=== PATIENT | male | born 1955 | race Caucasian/White ===

== ENCOUNTER 2020-07-25 14:36 | Outpatient (REF) | payer MEDICARE, SELFPAY ==
[2020-07-25 15:38] LABS: MANUAL DIFF FLAG NO
[2020-07-25 15:46] LABS: Basophils Absolute Auto 0.1 X10*3/uL (0.0-0.2); Basophils Percent Auto 0.6 % (0-2); Eosinophils Absolute Auto 0.3 X10*3/uL (0.0-0.4); Hematocrit 43.8 % (42-52); Hemoglobin 14.3 g/dl (14.0-18.0); Imm Gran Abs Auto 0.02 X10*3/uL (0.00-0.03); Imm Gran Pct Auto 0.2 % (0.0-0.4); Lymphocytes Absolute Auto 3.9 X10*3/uL (1.2-4.9); Lymphocytes Percent Auto 43.4 % (20-40); Mean Corpuscular HGB Conc 32.6 g/dl (31.0-36.0); Mean Corpuscular Hemoglobin 29.6 pg (27.0-33.0); Mean Corpuscular Volume 90.7 fL (80-98); Mean Platelet Volume 10.6 fL (9.4-12.4); Monocytes Absolute Auto 0.7 X10*3/uL (0.1-1.2); Monocytes Percent Auto 7.6 % (2-11); Neutrophils Absolute Auto 4.1 X10*3/uL (2.0-8.3); Neutrophils Percent Auto 45.2 % (45-73); Platelet Count 232 X10*3/uL (160-400); Red Blood Count 4.83 X10*6/uL (4.60-5.80); Red Cell Distribution Width 12.2 % (11.0-16.0)
[2020-07-25 16:13] LABS: Anion Gap 11 (12-20); Blood Urea Nitrogen 14 mg/dL (9-16); Calcium 9.7 mg/dL (8.4-10.2); Carbon Dioxide 30 mmol/L (22-29); Chloride 104 mmol/L (96-108); Estimated Glomerular Filt Rate > 60; Glucose Random 110 mg/dL (60-115); Potassium 4.2 mmol/L (3.3-5.1); Sodium 141 mmol/L (135-145)
[2020-07-25 16:34] LABS: Thyroid Stimulating Hormone 0.55 uIU/mL (0.32-4.0)
== END 2020-07-25 14:37 | disposition home or self-care (01) ==
LOC: HO.LAB 14:36
PROVIDERS: PCP Internal Medicine; Visit Provider Internal Medicine
DX: Z00.00 Encounter for general adult medical examination without abnormal findings (principal); R51.9 Headache, unspecified; E03.9 Hypothyroidism, unspecified
CPT/HCPCS: 36415; 80048; 84443; 85025

== ENCOUNTER 2022-09-02 14:26 | Outpatient (AMB) | payer MEDICARE, SELFPAY ==
[2022-09-02 14:29] VITALS: BP 118/80; PULSE 104; O2SAT 97; BMI 20.4
--- NOTE | 2022-09-02 14:29 | A.OFFPC_ITS ---
Vital Signs 09/02/22 14:29 Height 5 ft 9.5 in Weight 140 lb 8 oz BMI 20.4 BP 118/80 Blood Pressure Location Lt brachial Position Sitting Pulse 104 H Pulse Source Pulse Oximeter Pulse Oximetry (%) 97 Oxygen Delivery Method Room Air Intake Visit Reasons: Follow Up Financial Underwriter Required: No Accompanied by: Self / Same As Patient Allergies No Known Allergies Allergy (Verified 09/02/22 14:30) Medication List - Last Reconciled 09/02/22 by Cm Saunders MD clonazepam 2 mg PO BEDTIME hydromorphone 4 mg PO ONCE levothyroxine 150 mcg PO DAILY lisinopril-hydrochlorothiazide 10-12.5 mg 1 tab PO DAILY mirtazapine 15 mg PO BEDTIME morphine ER 15 mg PO DAILY morphine ER 30 mg PO BID nortriptyline 50 mg PO BEDTIME omeprazole 20 mg PO DAILY pravastatin 20 mg PO BEDTIME tamsulosin 0.8 mg (2 x 0.4 mg) PO DAILY Tobacco use date assessed: 09/02/22 Fall risk assessment: No Falls in past year Last assessed Fall Risk: 09/02/22 Dental Screening Dental Screen Date: 09/02/22 Did you have a dental visit in the last 12 months?: Yes Did you have a dental problem in the last 6 months where you did not have access to dental care?: No Was dental information given to patient?: Patient has dentist HPI Follow Up HPI Details HTN and hyperlip on rx; goesto pain management for back pain [facility] Medical History (Updated 06/17/22 @ 13:16 by Cm Saunders MD) Hypertension Surgical History H/O left wrist surgery History of laminectomy Family History Father Cerebral aneurysm Mother No problems noted. Brother Alcoholism Other Substance use disorder Social History Housing: House Alcohol intake: never Patient Tobacco Use Status: Current everyday Tobacco user Tobacco use type: Pipe Cigarettes Per Day: 2 e-Cigarette/Vaping Use: Never Used Second Hand Smoke Exposure: No service: No Current occupational status: retired Cognitive needs: No Hearing needs: No Vision needs: No Questionnaire PHQ-9 Over the last 2 weeks, how often have you been bothered by any of the following problems? Depression Screening Interpretation: Negative Source: Developed by Drs. Bradley Pickens, Adrian Worthington and colleagues, with an educational vinod from [employer] (acquired by [employer]). Thrive Questionnaire Date Thrive assessed: 09/02/22 I am a: Patient What is your living situation today?: I have a steady place to live Within the past 12 months, did the food you bought not last and you didn't have the money to get more?: Never true Within the past 12 months, did you worry whether your food would run out before you got money to buy more?: Never true Do you have trouble paying for medicines?: No Do you have trouble getting transportation to medical appointments?: No Do you have trouble paying your heating and electricity bill?: No Do you have trouble taking care of your child, family member or friend?: No Do you have trouble with day-to-day activities such as bathing, preparing meals, shopping, managing finances, etc.?: No Are you currently unemployed and looking for a job?: No Are you interested in more education?: No Currently or been in a relationship where the following occur: no concerns reported AUDIT C Alcohol Use Questionnaire (AUDIT-C) 1. How often do you have a drink containing alcohol?: Never 3. How often do you have six or more drinks on one occasion?: Never Total Score: 0 Score Reviewed/Action Taken: Yes JOSHUA-7 AMB Questionnaire JOSHUA-7 Date JOSHUA - 7 assessed: 09/02/22 Feeling nervous, anxious, or on edge: 0 = Not at all Not being able to stop or control worryin = Not at all Worrying too much about different things: 0 = Not at all Trouble relaxin = Not at all Being so restless that it is hard to sit still: 0 = Not at all Becoming easily annoyed or irritable: 0 = Not at all Feeling afraid as if something awful might happen: 0 = Not at all Total JOSHUA-7 score (0-4 normal; 5-9 mild; 10-14 moderate; 15-21 severe): 0 Source: Developed by Ilana Tanner Kurt Kroenke and colleagues, with an educational vinod from [employer] (acquired by [employer]). JOSHUA-7 Assessment Billing JOSHUA-7 Assessment Tool: JOSHUA-7 Assessment 65636 Review of Systems Const Denies chills, Denies headache(s) and Denies weight loss ENT Denies headache(s) Card Denies chest pain, Denies syncope, Denies irregular heart rhythm and Denies dyspnea Resp Denies chest congestion, Denies cough and Denies dyspnea GI Denies abdominal pain, Denies change in stool character, Denies nausea and Denies vomiting Musc Denies deformity and Denies joint swelling Neuro Denies syncope and Denies headache(s) Physical exam (Primary Care) Vital Signs: Last Vital Signs Pulse 104 H 09/02/22 14:29 BP 118/80 09/02/22 14:29 Pulse Ox 97 09/02/22 14:29 Oxygen Delivery Method Room Air 09/02/22 14:29 BMI result Body Mass Index 20.4 Tobacco/Smoking Status: Tobacco use Status Tobacco use date assessed 09/02/22 09/02/22 14:35 Patient Tobacco Use Status Current everyday Tobacco 09/02/22 14:35 Tobacco use type Pipe 09/02/22 14:35 e-Cigarette/Vaping Use Never Used 09/02/22 14:35 Are you ready to quit: No Tobacco cessation counseling provided: Yes Number of minutes spent counselin CPT code: 39070 - 4-10 Minutes Depression Screening Interpretation: Negative Thrive Assessment: Date of Thrive Assessment Date Thrive assessed 09/02/22 09/02/22 14:35 Currently or been in a relationship where the following occur: no concerns reported Const General: comfortable, no acute distress and alert Neck Neck: Yes no lymphadenopathy Thyroid: Thyroid normal Resp Effort & Inspection: normal respiratory effort Auscultation: clear to auscultation bilaterally Percussion: percussion normal Cardio Jugular venous distension: no JVD Palpation: normal PMI Rate: regular rate Rhythm: regular rhythm Heart sounds: S1 normal heart sound present and S2 normal heart sound present GI Inspection: Yes normal to inspection Palpation (GI): No hepatosplenomegaly present Skin General skin exam: no rashes or lesions noted Extrem Other: dupytrens cont right hand General: Yes no clubbing, cyanosis or edema Assessment and Plan Assessment & Plan (1) Hypothyroidism: Code(s): E03.9 - Hypothyroidism, unspecified Plan: stable; same rx (2) Hypertension: Code(s): I10 - Essential (primary) hypertension Plan: stable; same rx Orders: Orders Comprehensive [place]. Panel Fast Today N28.9 - Disorder of kidney and ureter, unspecified Lipid Panel Today E78.5 - Hyperlipidemia, unspecified Thyroid Stimulating Hormone Today E03.9 - Hypothyroidism, unspecified Coding Level of Care Code Est Pt Level 4 (20128) Diagnoses Hypothyroidism E03.9 Hypertension I10 Additional Codes JOSHUA-7 Assessment Billing - JOSHUA-7 Assessment Tool: JOSHUA-7 Assessment 46608 ([id number]) Vital Signs *Quality* - CPT code: 02879 - 4-10 Minutes ([id number])
== END 2022-09-02 14:42 | disposition home or self-care (01) ==
PROVIDERS: PCP Internal Medicine; Visit Provider Internal Medicine
DX: E03.9 Hypothyroidism, unspecified (principal); I10 Essential (primary) hypertension
CPT/HCPCS: 99214

== ENCOUNTER 2023-03-30 11:23 | Outpatient (AMB) | payer MEDICARE, SELFPAY ==
[2023-03-30 11:25] VITALS: BP 132/70; PULSE 87; O2SAT 98; BMI 20.2
--- NOTE | 2023-03-30 11:25 | A.OFFPC_ITS ---
Vital Signs 03/30/23 11:25 Height 5 ft 9.5 in Weight 139 lb BMI 20.2 BP 132/70 Blood Pressure Location Lt brachial Position Sitting Pulse 87 Pulse Source Pulse Oximeter Pulse Oximetry (%) 98 Oxygen Delivery Method Room Air Intake Visit Reasons: 6mth f/u ( Medications ) Reception Manager Required: No Can Piler: Not Required per policy Accompanied by: Self / Same As Patient Allergies No Known Allergies Allergy (Verified 03/30/23 11:25) Medication List - Last Reconciled 03/31/23 by Cm Saunders MD clonazepam 2 mg PO BEDTIME hydromorphone 4 mg PO ONCE levothyroxine 150 mcg PO DAILY lisinopril-hydrochlorothiazide 10-12.5 mg 1 tab PO DAILY mirtazapine 15 mg PO BEDTIME morphine ER 15 mg PO DAILY morphine ER 30 mg PO BID nortriptyline 50 mg PO BEDTIME omeprazole 20 mg PO DAILY pravastatin 20 mg PO BEDTIME tamsulosin 0.8 mg (2 x 0.4 mg) PO DAILY Tobacco use date assessed: 03/30/23 Fall risk assessment: No Falls in past year Last assessed Fall Risk: 03/30/23 Dental Screening Dental Screen Date: 03/30/23 Did you have a dental visit in the last 12 months?: Yes Did you have a dental problem in the last 6 months where you did not have access to dental care?: No Was dental information given to patient?: Patient has dentist HPI 6mth f/u ( Medications ) HPI Details HTN on Rx; doing well; Chronic pain and anxiety and goes to pain management for his meds [facility] Medical History (Updated 06/17/22 @ 13:16 by Cm Saunders MD) Hypertension Surgical History H/O left wrist surgery History of laminectomy Family History Father Cerebral aneurysm Mother No problems noted. Brother Alcoholism Other Substance use disorder Social History Housing: House Alcohol intake: never Patient Tobacco Use Status: Current everyday Tobacco user Tobacco use type: Pipe Cigarettes Per Day: 2 e-Cigarette/Vaping Use: Never Used Second Hand Smoke Exposure: No service: No Current occupational status: retired Cognitive needs: No Hearing needs: No Vision needs: No Questionnaire PHQ-9 Over the last 2 weeks, how often have you been bothered by any of the following problems? 1. Little interest or pleasure in doing things: several days 2. Feeling down, depressed, or hopeless: more than half the days 3. Trouble falling or staying asleep, or sleeping too much: not at all 4. Feeling tired or having little energy: not at all 5. Poor appetite or overeating: not at all 6. Feeling bad about yourself - or that you are a failure or have let yourself or your family down: not at all 7. Trouble concentrating on things, such as reading the newspaper or watching television: not at all 8. Moving or speaking so slowly that other people could have noticed. Or the opposite - being so fidgety or restless that you have been moving around a lot more than usual: not at all 9. Thoughts that you would be better off or of hurting yourself in some way: not at all Total score: 3 Depression Screening Interpretation: Negative Depression Screening Done: Yes Source: Developed by Drs. Bradley Pickens, Ilana Fitzgerald, Adrian Kim and colleagues, with an educational vinod from [employer]. Thrive Questionnaire Date Thrive assessed: 03/30/23 I am a: Patient What is your living situation today?: I have a steady place to live Within the past 12 months, did the food you bought not last and you didn't have the money to get more?: Never true Within the past 12 months, did you worry whether your food would run out before you got money to buy more?: Never true Do you have trouble paying for medicines?: No Do you have trouble getting transportation to medical appointments?: No Do you have trouble paying your heating and electricity bill?: No Do you have trouble taking care of your child, family member or friend?: No Do you have trouble with day-to-day activities such as bathing, preparing meals, shopping, managing finances, etc.?: No Are you currently unemployed and looking for a job?: No Are you interested in more education?: No Please select the resources that you would like help with: None THRIVE Score: 0 AUDIT C Alcohol Use Questionnaire (AUDIT-C) 1. How often do you have a drink containing alcohol?: Never 3. How often do you have six or more drinks on one occasion?: Never Total Score: 0 Score Reviewed/Action Taken: Yes JOSHUA-7 AMB Questionnaire JOSHUA-7 Date JOSHUA - 7 assessed: 03/30/23 Feeling nervous, anxious, or on edge: 0 = Not at all Not being able to stop or control worryin = Not at all Worrying too much about different things: 0 = Not at all Trouble relaxin = Not at all Being so restless that it is hard to sit still: 0 = Not at all Becoming easily annoyed or irritable: 0 = Not at all Feeling afraid as if something awful might happen: 0 = Not at all Total JOSHUA-7 score (0-4 normal; 5-9 mild; 10-14 moderate; 15-21 severe): 0 Source: Developed by Drs. Bradley Pickens, Ilana Fitzgerald, Adrian Kim and colleagues, with an educational vinod from [employer]. Review of Systems Const Denies chills, Denies headache(s) and Denies weight loss ENT Denies headache(s) Card Denies chest pain, Denies syncope, Denies irregular heart rhythm and Denies dyspnea Resp Denies chest congestion, Denies cough and Denies dyspnea GI Denies abdominal pain, Denies change in stool character, Denies nausea and Denies vomiting Musc Denies deformity and Denies joint swelling Neuro Denies syncope and Denies headache(s) Physical exam (Primary Care) Vital Signs: Last Vital Signs Pulse 87 03/30/23 11:25 BP 132/70 03/30/23 11:25 Pulse Ox 98 03/30/23 11:25 Oxygen Delivery Method Room Air 03/30/23 11:25 BMI result Body Mass Index 20.2 Tobacco/Smoking Status: Tobacco use Status Tobacco use date assessed 03/30/23 03/30/23 11:26 Patient Tobacco Use Status Current everyday Tobacco 03/30/23 11:26 Tobacco use type Pipe 03/30/23 11:26 e-Cigarette/Vaping Use Never Used 03/30/23 11:26 PHQ-9: PHQ-9 Score PHQ-9: Total score 3 03/30/23 11:45 Depression Screening Interpretation: Negative Thrive Assessment: Date of Thrive Assessment Date Thrive assessed 03/30/23 03/30/23 11:26 Const General: cooperative, comfortable, no acute distress and alert Neck Neck: Yes no lymphadenopathy Thyroid: Thyroid normal Resp Effort & Inspection: normal respiratory effort Auscultation: clear to auscultation bilaterally Percussion: percussion normal Cardio Jugular venous distension: no JVD Palpation: normal PMI Rate: regular rate Rhythm: regular rhythm Heart sounds: S1 normal heart sound present and S2 normal heart sound present GI Inspection: Yes normal to inspection Palpation (GI): No hepatosplenomegaly present Skin General skin exam: no rashes or lesions noted Extrem General: Yes no clubbing, cyanosis or edema Office Procedures Flu Questionnaire Does the patient have a severe egg allergy?: No Does the patient have severe life threatening allergies?: No Does the patient have a fever or illness today?: No Has the patient ever had Guillain-Alexis Syndrome?: No Has the patient ever had any past reaction to a flu shot?: No Immunizations flu vacc [id number] 6mos up(PF) 60 mcg(15 mcgx4)/0.5 mL IM syringe Performing Provider: Cm Saunders MD Performing Location: [facility] Administered by: ANRDEY Jessica on 03/30/23 11:46 Dose Route Admin Location Dispensed Lot Number Expiration Date NDC Buffing Machine Operator 0.5 mL IM Left Deltoid 0.5 mL [id number] 08/22/23 [id number] [employer] VIS Given Date VIS Provided VIS Publication Date 03/30/23 Single Vaccine 20 Eligibility Eligibility Date Funding Source Not [facility] Eligible 03/30/23 Private Assessment and Plan Assessment & Plan (1) Hypertension: Code(s): I10 - Essential (primary) hypertension Plan: stable; same rx Orders: Orders Influenza [id number] Immunization 03/30/23 Z23 - Encounter for immunization Thyroid Stimulating Hormone 03/30/23 E03.9 - Hypothyroidism, unspecified Complete Blood Count Auto Diff 03/30/23 D64.9 - Anemia, unspecified Lipid Panel 03/30/23 E78.5 - Hyperlipidemia, unspecified Comprehensive [place]. Panel Fast 03/30/23 N28.9 - Disorder of kidney and ureter, unspecified Coding Level of Care Code Est Pt Level 3 (05565) Diagnoses Hypertension I10
== END 2023-03-30 11:47 | disposition home or self-care (01) ==
PROVIDERS: PCP Internal Medicine; Visit Provider Internal Medicine
DX: Z23 Encounter for immunization (principal)
CPT/HCPCS: 90471; 90686; 99213

== ENCOUNTER 2023-08-03 14:11 | Outpatient (AMB) | payer MEDICARE, SELFPAY ==
[2023-08-03 14:24] VITALS: BP 110/78; PULSE 94; O2SAT 97; BMI 22.7
--- NOTE | 2023-08-03 14:24 | MHC.PC.OV ---
Vital Signs 08/03/23 14:24 Height 5 ft 5.9 in Weight 140 lb 8 oz BMI 22.7 BP 110/78 Blood Pressure Location Lt brachial Position Sitting Pulse 94 Pulse Source Pulse Oximeter Pulse Oximetry (%) 97 Oxygen Delivery Method Room Air Intake Visit Reasons: lab reviews Commercial Loan Coordinator Required: No Accompanied by: Self / Same As Patient Allergies No Known Allergies Allergy (Verified 08/03/23 14:28) Medication List - Last Reconciled 08/04/23 by Cm Saunders MD clonazepam 2 mg PO BEDTIME hydromorphone 4 mg PO ONCE levothyroxine 150 mcg PO DAILY lisinopril-hydrochlorothiazide 10-12.5 mg 1 tab PO DAILY mirtazapine 15 mg PO BEDTIME morphine ER 15 mg PO DAILY morphine ER 30 mg PO BID nortriptyline 50 mg PO BEDTIME omeprazole 20 mg PO DAILY pravastatin 20 mg PO BEDTIME tamsulosin 0.8 mg (2 x 0.4 mg) PO DAILY Tobacco use date assessed: 03/30/23 Fall risk assessment: No Falls in past year Last assessed Fall Risk: 08/03/23 Dental Screening Dental Screen Date: 03/30/23 HPI lab reviews HPI Details hypothyroidism on rx; labs not reported yet [facility] Medical History (Updated 06/17/22 @ 13:16 by Cm Saunders MD) Hypertension Surgical History H/O left wrist surgery History of laminectomy Family History Father Cerebral aneurysm Mother No problems noted. Brother Alcoholism Other Substance use disorder Social History Housing: House Alcohol intake: never Patient Tobacco Use Status: Current everyday Tobacco user Tobacco use type: Pipe Cigarettes Per Day: 2 e-Cigarette/Vaping Use: Never Used Second Hand Smoke Exposure: No service: No Current occupational status: retired Cognitive needs: No Hearing needs: No Vision needs: No Questionnaire Thrive Questionnaire Date Thrive assessed: 03/30/23 JOSHUA-7 AMB Questionnaire JOSHUA-7 Date JOSHUA - 7 assessed: 03/30/23 Source: Developed by Drs. Bradley Pickens, Ilana Fitzgerald, Adrian Kim and colleagues, with an educational vinod from [employer]. Review of Systems Const Denies chills, Denies headache(s) and Denies weight loss ENT Denies headache(s) Card Denies chest pain, Denies syncope, Denies irregular heart rhythm and Denies dyspnea Resp Denies chest congestion, Denies cough and Denies dyspnea GI Denies abdominal pain, Denies change in stool character, Denies nausea and Denies vomiting Musc Denies deformity and Denies joint swelling Neuro Denies syncope and Denies headache(s) Physical exam (Primary Care) Vital Signs: Last Vital Signs Pulse 94 08/03/23 14:24 BP 110/78 08/03/23 14:24 Pulse Ox 97 08/03/23 14:24 Oxygen Delivery Method Room Air 08/03/23 14:24 BMI result Body Mass Index 22.7 Tobacco/Smoking Status: Tobacco use Status Tobacco use date assessed 03/30/23 08/03/23 14:28 Patient Tobacco Use Status Current everyday Tobacco 08/03/23 14:28 Tobacco use type Pipe 08/03/23 14:28 e-Cigarette/Vaping Use Never Used 08/03/23 14:28 Thrive Assessment: Date of Thrive Assessment Date Thrive assessed 03/30/23 08/03/23 14:28 Const General: cooperative, comfortable, no acute distress and alert Neck Neck: Yes no lymphadenopathy Thyroid: Thyroid normal Resp Effort & Inspection: normal respiratory effort Auscultation: clear to auscultation bilaterally Percussion: percussion normal Cardio Jugular venous distension: no JVD Palpation: normal PMI Rate: regular rate Rhythm: regular rhythm Heart sounds: S1 normal heart sound present and S2 normal heart sound present GI Inspection: Yes normal to inspection Palpation (GI): No hepatosplenomegaly present Skin General skin exam: no rashes or lesions noted Extrem General: Yes no clubbing, cyanosis or edema Assessment and Plan Assessment & Plan (1) Hypothyroidism: Code(s): E03.9 - Hypothyroidism, unspecified Plan: await labs Coding Level of Care Code Est Pt Level 3 (58245) Diagnoses Hypothyroidism E03.9
== END 2023-08-03 16:14 | disposition home or self-care (01) ==
PROVIDERS: PCP Internal Medicine; Visit Provider Internal Medicine
DX: E03.9 Hypothyroidism, unspecified (principal)
CPT/HCPCS: 99213

== ENCOUNTER 2024-03-30 11:05 | Outpatient (AMB) | payer MEDICARE, SELFPAY ==
--- NOTE | 2024-03-30 11:07 | MHC.PC.OV ---
Intake Visit Reasons: Follow up [facility]/ Allergies No Known Allergies Allergy (Verified 03/30/24 11:07) Medication List - Last Reconciled 03/30/24 by Cm Saunders MD clonazepam 2 mg PO BEDTIME hydromorphone 4 mg PO ONCE levothyroxine 150 mcg PO DAILY lisinopril-hydrochlorothiazide 10-12.5 mg 1 tab PO DAILY mirtazapine 15 mg PO BEDTIME morphine ER 15 mg PO DAILY morphine ER 30 mg PO BID nortriptyline 50 mg PO BEDTIME omeprazole 20 mg PO DAILY pravastatin 20 mg PO BEDTIME tamsulosin 0.8 mg (2 x 0.4 mg) PO DAILY Tobacco use date assessed: 03/30/24 Fall risk assessment: No Falls in past year Last assessed Fall Risk: 03/30/24 Dental Screening Dental Screen Date: 03/30/24 Did you have a dental visit in the last 12 months?: Yes Did you have a dental problem in the last 6 months where you did not have access to dental care?: No Was dental information given to patient?: Patient has dentist HPI Follow up [facility]/[phone] HPI Details hypothyroidism on rx; doing well and compliant [facility] Medical History (Updated 06/17/22 @ 13:16 by Cm Saunders MD) Hypertension Surgical History H/O left wrist surgery History of laminectomy Family History Father Cerebral aneurysm Mother No problems noted. Brother Alcoholism Other Substance use disorder Social History Housing: House Alcohol intake: never Patient Tobacco Use Status: Current everyday Tobacco user Tobacco use type: Pipe Cigarettes Per Day: 2 e-Cigarette/Vaping Use: Never Used Second Hand Smoke Exposure: No service: No Current occupational status: retired Cognitive needs: No Hearing needs: No Vision needs: No Questionnaire PHQ-9 Over the last 2 weeks, how often have you been bothered by any of the following problems? 1. Little interest or pleasure in doing things: several days 2. Feeling down, depressed, or hopeless: more than half the days 3. Trouble falling or staying asleep, or sleeping too much: not at all 4. Feeling tired or having little energy: not at all 5. Poor appetite or overeating: not at all 6. Feeling bad about yourself - or that you are a failure or have let yourself or your family down: not at all 7. Trouble concentrating on things, such as reading the newspaper or watching television: not at all 8. Moving or speaking so slowly that other people could have noticed. Or the opposite - being so fidgety or restless that you have been moving around a lot more than usual: not at all 9. Thoughts that you would be better off or of hurting yourself in some way: not at all Total score: 3 Depression Screening Interpretation: Negative Depression Screening Done: Yes Source: Developed by Drs. Bradley Pickens, Ilana Fitzgerald, Adrian Kim and colleagues, with an educational vinod from [employer]. Thrive Questionnaire Date Thrive assessed: 03/30/24 I am a: Patient What is your living situation today?: I have a steady place to live Within the past 12 months, did the food you bought not last and you didn't have the money to get more?: Never true Within the past 12 months, did you worry whether your food would run out before you got money to buy more?: Never true Do you have trouble paying for medicines?: No Do you have trouble getting transportation to medical appointments?: No Do you have trouble paying your heating and electricity bill?: No Do you have trouble taking care of your child, family member or friend?: No Do you have trouble with day-to-day activities such as bathing, preparing meals, shopping, managing finances, etc.?: No Are you currently unemployed and looking for a job?: No Are you interested in more education?: No Currently or been in a relationship where the following occur: No concerns reported THRIVE Score: 0 AUDIT C Alcohol Use Questionnaire (AUDIT-C) 1. How often do you have a drink containing alcohol?: Never 3. How often do you have six or more drinks on one occasion?: Never Total Score: 0 Score Reviewed/Action Taken: Yes JOSHUA-7 AMB Questionnaire JOSHUA-7 Date JOSHUA - 7 assessed: 03/30/24 Feeling nervous, anxious, or on edge: 0 = Not at all Not being able to stop or control worryin = Not at all Worrying too much about different things: 0 = Not at all Trouble relaxin = Not at all Being so restless that it is hard to sit still: 0 = Not at all Becoming easily annoyed or irritable: 0 = Not at all Feeling afraid as if something awful might happen: 0 = Not at all Total JOSHUA-7 score (0-4 normal; 5-9 mild; 10-14 moderate; 15-21 severe): 0 Source: Developed by Drs. Bradley Pickens, Ilana Fitzgerald, Adrian Kim and colleagues, with an educational vinod from [employer]. Review of Systems Const Denies chills, Denies headache(s) and Denies weight loss ENT Denies headache(s) Card Denies chest pain, Denies syncope, Denies irregular heart rhythm and Denies dyspnea Resp Denies chest congestion, Denies cough and Denies dyspnea GI Denies abdominal pain, Denies change in stool character, Denies nausea and Denies vomiting Musc Denies deformity and Denies joint swelling Neuro Denies syncope and Denies headache(s) Physical exam (Primary Care) Tobacco/Smoking Status: Tobacco use Status Tobacco use date assessed 03/30/24 03/30/24 11:08 Patient Tobacco Use Status Current everyday Tobacco 03/30/24 11:08 Tobacco use type Pipe 03/30/24 11:08 e-Cigarette/Vaping Use Never Used 03/30/24 11:08 PHQ-9: PHQ-9 Score PHQ-9: Total score 3 03/30/24 11:08 Depression Screening Interpretation: Negative Thrive Assessment: Date of Thrive Assessment Date Thrive assessed 03/30/24 03/30/24 11:08 Currently or been in a relationship where the following occur: No concerns reported Telehealth Telehealth Telehealth Platform: Telephone Location of provider rendering services: practice address Location of patient: address on file Patient Identification confirmed using: Name, : Yes Telehealth method: voice only Patient verbally consented to treatment: Yes Patient verbally consented to billing insurance company: Yes Patient informed of any privacy concerns related to visit: Yes Minutes spent on Phone/Video with Pt.: 15 (telephone) Coding Level of Care Code Tele Est Pt Level 3 (52790) Diagnoses Hypothyroidism E03.9 Assessment & Plan Assessment & Plan (1) Hypothyroidism: Code(s): E03.9 - Hypothyroidism, unspecified Category: Medical Plan: stable; same rx Medications: Refilled omeprazole 20 mg PO DAILY 90 caps 0RF tamsulosin 0.8 mg (2 x 0.4 mg) PO DAILY 180 caps 1RF
--- OUTSIDE RECORDS SUMMARY | 2024-03-30 11:10 | XMS_ITS | Continuity of Care Document ---
Author Organization [place] - [facility], [facility] - [facility] 3rd floor Address [address] [place] [address] Care Team Providers Care Plaster Caster Name Role Phone JEIMY HACKETT Referring Provider [phone] JEIMY HACKETT Primary Care Provider Assessment Encounter Date Assessment Date Assessment LastModified by Organization Details LastModified Time 03/29/2024 03/29/2024 HPI: 68-year-old male, Nishant Alarcon, presents for followup of his non-displaced right lateral tibial plateau fracture initially sustained on 12/14/2023. Subjective: - Patient reports significant improvement in the condition of his right knee. - Describes occasional tick sensation in the knee but no pain. - Has been building back strength by walking two miles, up from not being able to walk due to the injury. - No other new complaints or concerns were mentioned. Objective: Physical Exam: - Right knee demonstrates limited extension due to tight hamstrings. - Full extension achieved with effort. - Flexion up to 130 degrees. - No instability to varus or valgus stress. - No tenderness along the medial or lateral joint lines. Imaging: - Imaging ordered, obtained, and reviewed at [facility]. - AP and lateral X-rays of the right knee show no residual fracture lines. - No significant joint space degeneration or additional bony abnormalities noted. Assessment: - Healed non-displaced right lateral tibial plateau fracture with no residual complications. Plan: - Encouraged to continue progressive walking to build strength and endurance. - No further orthopedic follow-up required unless new issues arise. - Advised to seek medical attention for his , Darlene, following her recent fall and wrist injury. Disclaimer: This note was accomplished with use of [employer] software, which is prone to medical and other word misidentificatio ns, grammatical errors, and other misinterpretatio ns. The physician does strive to identify and correct these, but some could still be present. Please do not hesitate to contact the physician for clarifications. [email or web address] Not available 03/29/2024 14:40:01 Plan of Treatment Reminders Order Date Submit Date Provider Last Modified By Organization Details Last Modified Time Details Appointments None recorde d. Lab None recorde d. Referral None recorde d. Procedures None recorde d. Surgeries None recorde d. Imaging XR, knee, 1 or 2 view - 310 2V RIGHT KNEE 025 03/29/19 [email or web address] [facility], [address] [facility], [facility] [address], [place], [address], 15:04:30 Medication Orders None recorde d. Patient TargetsNo targets recorded. Patient InstructionsNo instructions recorded. Reason for Referral None Reported. Results Created Date Observation Date Name Description Value Unit Range Abnormal Flag Note LastModifiedBy Organization Detail LastModifiedTime 03/29/1903/29/2024 XR, knee, 1 or 2 view http:/ [email or web address] ?Encry pted=s hAaTro YD8dLq bEUv6g %2BXZw aYqtaq 0bqfl% 2Fg9IQ a4ajBk vP9nXo QUaueC m3YtLR FvZlgJ JJ8mAn HZtai3 3x7160 AC0Kqb HmCUqG nKiQtr MwF INTERFACE [facility] [address], [place], [address], 03/29/2024 13:28:05 03/29/19 25 03/29/2024 XR, knee, 1 or 2 view http:/ [email or web address] ?Encry pted=s hAaTro YD8dLq bEUv6g %2BXZw aYqtaq 0bqfl% 2Fg9IQ a4ajBk vP9nXo QUaueC m3YtLR FvZl JJ8mAn HZtai3 7s4604 AC0Kqb HmCUqG nKiQtr MwF INTERFACE [facility] [address], [place], [address], 03/29/2024 13:28:08 Result Notes None recorded. Problems Name Problem SNOMED Code Status Onset Date Resolution Date Notes Provider Name and Address Organization Details Recorded Time Closed fracture of tibial plateau 149769929 Active 025 NICKY faulkner [facility] 5 13:22:14 Problem Notes None recorded. Procedures Surgical History Date Name Laterality Status Provider Name and Address Organization Details Recorded Time 5 29449 Therapeutic Exercise (1:1) completed Inessa Gayle PTA [address], [place], [address], [facility] 02/28/2024 15:29:44 5 89812 Therapeutic Exercise (1:1) completed Mara Shaffer PT [address], [place], [address], [facility] 02/25/2024 09:22:48 4 90470 Therapeutic Exercise (1:1) completed Mara Shaffer PT [address], [place], [address], [facility] 02/21/2024 13:26:19 4 86485 Therapeutic Exercise (1:1) completed Inessa Gayle PTA [address], [place], [address], [facility] 02/18/2024 13:54:54 4 75631 Therapeutic Exercise (1:1) completed Mara Shaffer PT [address], [place], [address], [facility] 02/14/2024 13:35:33 4 44062 Therapeutic Exercise (1:1) completed Inessa Gayle PTA [address], [place], [address], [facility] 02/11/2024 14:24:54 4 32595 Therapeutic Exercise (1:1) completed Mara Shaffer, PT [address], [place], [address], [facility] 01/25/2024 17:25:42 4 04246: Low complexity PT Eval completed Mara Shaffer, PT [address], [place], [address], [facility] 01/25/2024 17:26:35 4 G8420 BMI Normal, No Follow-Up Plan Required completed Mara Shaffer, PT [address], [place], [address], [facility] 01/25/2024 17:25:39 4 G8427 Current Medication Documented completed Mara Shaffer, PT [address], [place], [address], [facility] 01/25/2024 17:25:36 Imaging Results None recorded. Procedure Notes None recorded. Medical Equipment None Reported. Medications Name Sig Start Date Stop Date Status Note LastModified by Organization Details LastModified Time prednisone 10 mg tablet TAKE 4 TABS BY MOUTH DAILY FOR 2 DAYS,THEN DECREASED BY ONE PILL EVERY 2 DAYS. 01/25 completed Not Available Not Available Not Available morphine ER 30 mg tablet,exte nded release TAKE 1 TABLET BY MOUTH EVERY AM AND NIGHTIME MAY FILL LESSER AMOUNT. MAY FILL WHEN DUE active Not Available Not Available No t Available acetaminoph en 500 mg tablet TAKE 2 TABLETS EVERY 6 HOURS BY ORAL ROUTE FOR 30 DAYS. 01/25 completed Not Available Not Available Not Available tamsulosin 0.4 mg capsule TAKE 2 CAPSULES BY MOUTH EVERY DAY active Not Available Not Available No t Available clonazepam 2 mg tablet TAKE ONE BY MOUTH EVERY DAY AT 8 AT NIGHT. MAY PARTIAL FILL. MAY FILL WHEN DUE. active Not Available Not Available No t Available levothyroxi ne 150 mcg tablet TAKE 1 TABLET BY MOUTH EVERY DAY 01/25 completed Not Available Not Available Not Available omeprazole 20 mg capsule,del ayed release TAKE 1 CAPSULE BY MOUTH EVERY DAY 01/25 completed Not Available Not Available Not Available morphine ER 15 mg tablet,exte nded release TAKE 1 TABLET BY MOUTH DAILY MID DAY MAY FILL LESSER AMOUNT MAY FILL WHEN DUE. active Not Available Not Available No t Available pravastatin 20 mg tablet TAKE 1 TABLET BY MOUTH AT BEDTIME 01/25 completed Not Available Not Available Not Available mupirocin 2 % topical ointment active Not Available Not Available Not Available mirtazapine 15 mg tablet TAKE 1/2-1 TABLET BY MOUTH ONCE AT NIGHT AT BEDTIME NEEDED FOR INSOMNIA active Not Available Not Available No t Available lisinopril 10 mg-hydrochl orothiazide 12.5 mg tablet TAKE 1 TABLET BY MOUTH EVERY DAY 01/25 completed Not Available Not Available Not Available hydromorpho ne 4 mg tablet TAKE ONE TAB BY MOUTH DAILY NEEDED SEVERE PAIN, MAY FILL FEWER active Not Available Not Available No t Available nortriptyli ne 50 mg capsule TAKE 1 TABLET BY MOUTH AT BEDTIME active Not Available Not Available No t Available oxycodone 5 mg tablet TAKE 2 TABLETS BY MOUTH THREE TIMES A DAY NEEDED SEVERE PAIN, MAY FILL FEWER, REFILL WHEN DUE. active Not Available Not Available No t Available topiramate 50 mg tablet TAKE 2 TABLETS BY MOUTH AT BEDTIME active Not Available Not Available No t Available Vitals Date Recorded Body height Body mass index (BMI) Body weight Provider Name and Address Organization Details Last Updated DateTime 03/29/2024 175.26 cm 20.7 kg/m2 72473.93 g NICKY D[place] [facility] 03/29/2024 13:17:52 Social History None recorded. Functional Status None recorded. Mental Status None recorded. Family History Nothing Reported. Medical History No medical history recorded. Past Encounters Encounter ID Performer Location Encounter Start Date Encounter Closed Date Diagnosis/Indication Diagnosis SNOMED-CT Code Diagnosis ICD10 Code Diagnosis Note [id number] Mara Shaffer, PT [facility] [address] [place] [address] 02/29/2024 13:18:42 02/29/2024 15:42:14 Closed fracture proximal tibia, bicondylar 002269383 S82.141D [id number] MD [facility] [address] , [place] [address] 03/29/2024 13:02:58 03/29/2024 14:40:20 Closed fracture of tibial plateau 678713234 S82.141D Health Concerns Section Related Observation LastModified by Organization Detai ls LastModified Time None Recorded Concern Status LastModified by Organization Details LastModified Time None Recorded Payers Encounter Date Sequence Insurance Name Policy Number Policy Santos Covered Member ID Santos Member ID Guarantor Name 03/29/2024 1 [place] [employer] Nishant Alarcon [id number] Nishant Alarcon 03/29/2024 2 [place] [id number] Nishant Alarcon [id number] Nishant Alarcon
== END 2024-03-30 11:43 | disposition home or self-care (01) ==
LOC: HO.HMCH 11:05
PROVIDERS: PCP Internal Medicine; Visit Provider Internal Medicine
DX: E03.9 Hypothyroidism, unspecified (principal)

== ENCOUNTER → 2024-03-30 11:05 | Outpatient (BNVA) | payer MEDICARE, SELFPAY | PROVIDERS: PCP Internal Medicine; Visit Provider Internal Medicine ==

== ENCOUNTER 2024-07-25 11:05 | Outpatient (AMB) | payer MEDICARE, SELFPAY ==
--- NOTE | 2024-07-25 11:11 | A.OFFPC_ITS ---
Vital Signs 07/25/24 11:12 Height 5 ft 5.9 in Weight 152 lb 4 oz BMI 24.6 BP 140/80 H Blood Pressure Location Lt brachial Position Sitting Pulse 96 Pulse Source Pulse Oximeter Temp 96.9 F Temp Source Temporal Artery Scan Pulse Oximetry (%) 98 Oxygen Delivery Method Room Air Intake Visit Reasons: ZAN Dr Saunders Intake Note: Patient is here today for ZAN Dr Saunders Pressure Welder Required: No Hose Cementer: Not Required per policy Accompanied by: Self / Same As Patient Allergies No Known Allergies Allergy (Verified 07/25/24 11:39) Medication List - Last Reconciled 07/25/24 by Tucker Loco PA-C clonazepam 2 mg PO BEDTIME levothyroxine 150 mcg PO DAILY lisinopril-hydrochlorothiazide 10-12.5 mg 1 tab PO DAILY mirtazapine 15 mg PO BEDTIME morphine ER 15 mg PO DAILY morphine ER 30 mg PO BID nortriptyline 50 mg PO BEDTIME omeprazole 20 mg PO DAILY pravastatin 20 mg PO BEDTIME tamsulosin 0.8 mg (2 x 0.4 mg) PO DAILY Tobacco use date assessed: 07/25/24 Fall risk assessment: No Falls in past year Last assessed Fall Risk: 07/25/24 Dental Screening Dental Screen Date: 03/30/[address] Saunders HPI Details Patient is a 68-year-old male here today for a transfer of care visit. Previous PCP was Dr. Saunders. Patient has a past medical history significant for hypothyroidism, hypertension, chronic lumbar spine pain. .. Hypothyroidism: Continues on levothyroxine 150 mcg and TSH has been stable. .. Hyperlipidemia: Patient continues on statin therapy though feels it was strongly diagnosed in the past due to a nonfasting lab. Will hold office statin therapy for now on retest lipid panel fasting and if LDL 130 below without medication will continue to hold off on statin therapy .. Lumbar disc disease: Followed by control specialist whom gives patient's epidural injections in his managing his pain with morphine and clonazepam. He does report some events recently walking his dog and falling which has aggravated his sciatica pain. .. Hypertension: Blood pressure today in office slightly elevated, he feels his blood pressure is up due to being in the medical office. He does not regularly monitor his blood pressure though will start doing so. He does report feeling a bit dizzy when standing from a sitting position ? Orthostasis. Will hold off on his hydrochlorothiazide and continue lisinopril 10 mg. He will start monitoring his blood pressure more regularly at home [facility] Medical History (Updated 07/25/24 @ 11:52 by Tucker Loco PA-C) Hypertension Surgical History H/O left wrist surgery History of laminectomy Family History Father Cerebral aneurysm Mother No problems noted. Brother Alcoholism Other Substance use disorder Social History Housing: House Alcohol intake: never Patient Tobacco Use Status: Current everyday Tobacco user Tobacco use type: Cigar and Pipe Cigarettes Per Day: 2 e-Cigarette/Vaping Use: Never Used Second Hand Smoke Exposure: No service: No Current occupational status: retired Cognitive needs: No Hearing needs: No Vision needs: No Questionnaire PHQ-9 Over the last 2 weeks, how often have you been bothered by any of the following problems? 1. Little interest or pleasure in doing things: not at all 2. Feeling down, depressed, or hopeless: not at all 3. Trouble falling or staying asleep, or sleeping too much: not at all 4. Feeling tired or having little energy: more than half the days 5. Poor appetite or overeating: not at all 6. Feeling bad about yourself - or that you are a failure or have let yourself or your family down: not at all 7. Trouble concentrating on things, such as reading the newspaper or watching television: not at all 8. Moving or speaking so slowly that other people could have noticed. Or the opposite - being so fidgety or restless that you have been moving around a lot more than usual: not at all 9. Thoughts that you would be better off or of hurting yourself in some way: not at all Total score: 2 Depression Screening Interpretation: Positive Depression Screening Follow-up: Existing condition Depression Screening Done: Yes 46031 - PHQ-9 Billing: Yes Source: Developed by Drs. Bradley Pickens, Ilana Fitzgerald, Adrian Kim and colleagues, with an educational vinod from [employer] Thrive Questionnaire Date Thrive assessed: 03/30/24 I am a: Patient What is your living situation today?: I have a steady place to live Within the past 12 months, did the food you bought not last and you didn't have the money to get more?: Never true Within the past 12 months, did you worry whether your food would run out before you got money to buy more?: Never true Do you have trouble paying for medicines?: No Do you have trouble getting transportation to medical appointments?: No Do you have trouble paying your heating and electricity bill?: No Do you have trouble taking care of your child, family member or friend?: No Do you have trouble with day-to-day activities such as bathing, preparing meals, shopping, managing finances, etc.?: No Are you currently unemployed and looking for a job?: No Are you interested in more education?: No Please select the resources that you would like help with: None Currently or been in a relationship where the following occur: No concerns reported THRIVE Score: 0 AUDIT C Alcohol Use Questionnaire (AUDIT-C) 1. How often do you have a drink containing alcohol?: Never Total Score: 0 JOSHUA-7 AMB Questionnaire JOSHUA-7 Date JOSHUA - 7 assessed: 07/25/24 Feeling nervous, anxious, or on edge: 0 = Not at all Not being able to stop or control worryin = Several days Worrying too much about different things: 1 = Several days Trouble relaxin = Not at all Being so restless that it is hard to sit still: 0 = Not at all Becoming easily annoyed or irritable: 0 = Not at all Feeling afraid as if something awful might happen: 0 = Not at all Total JOSHUA-7 score (0-4 normal; 5-9 mild; 10-14 moderate; 15-21 severe): 2 Source: Developed by Drs. Bradley Pickens, Ilana Fitzgerald, Adrian Kim and colleagues, with an educational vinod from [employer] JOSHUA-7 Assessment Billing JOSHUA-7 Assessment Tool: JOSHUA-7 Assessment 45808 Review of Systems Const Denies headache(s) Eyes Denies loss of vision ENT Denies vertigo, Denies dizziness, Denies headache(s) and Denies sore throat Card Denies chest pain, Denies leg edema and Denies lightheadedness Resp Denies cough, Denies hemoptysis and Denies wheezing GI Denies abdominal pain, Denies melena, Denies constipation, Denies diarrhea and Denies vomiting Denies dysuria, Denies urinary frequency and Denies urinary urgency Musc Denies arthralgias, Denies joint swelling, Denies numbness and Denies tingling Neuro Denies Abnormal speech present, Denies behavioral changes, Denies vertigo, Denies dizziness, Denies headache(s), Denies loss of vision, Denies memory loss, Denies numbness and Denies tingling Psych Denies anxiety, Denies behavioral changes, Denies depression, Denies memory loss and Denies panic attacks Abdon/Lymph Denies easy bleeding and Denies easy bruising Aller/Immun Denies wheezing Physical exam (Primary Care) Vital Signs: Last Vital Signs Temp 96.9 F 07/25/24 11:12 Pulse 96 07/25/24 11:12 BP 140/80 H 07/25/24 11:12 Pulse Ox 98 07/25/24 11:12 Oxygen Delivery Method Room Air 07/25/24 11:12 BMI result Body Mass Index 24.6 Tobacco/Smoking Status: Tobacco use Status Tobacco use date assessed 07/25/24 07/25/24 11:19 Patient Tobacco Use Status Current everyday Tobacco 07/25/24 11:19 Tobacco use type Pipe,Cigar 07/25/24 11:19 e-Cigarette/Vaping Use Never Used 07/25/24 11:19 PHQ-9: PHQ-9 Score PHQ-9: Total score 2 07/25/24 11:42 Depression Screening Interpretation: Positive Depression Screening Follow-up: Existing condition Thrive Assessment: Date of Thrive Assessment Date Thrive assessed 03/30/24 07/25/24 11:19 Currently or been in a relationship where the following occur: No concerns reported Const General: healthy appearing, no acute distress, alert and awake Nutritional Appearance: well nourished Orientation/consciousness: oriented to person, oriented to place and oriented to time HENMT Ears: TM's normal bilaterally General nose exam: Normal nasal mucous membranes and turbinates present Eyes Conjunctivae: conjunctivae normal Sclerae: sclerae normal Pupils: Equal, round and reactive pupils present Neck Neck: Yes no lymphadenopathy and Yes no JVD Thyroid: Thyroid normal Carotids: no bruits Resp Effort & Inspection: normal respiratory effort and not tachypneic Auscultation: no crackles, no rales, no rhonchi and no wheezes Cardio Rate: regular rate Rhythm: regular rhythm Heart sounds: no murmurs and normal S1 and S2 GI Palpation (GI): Soft to palpation, nontender, no hepatomegaly and no splenomegaly Auscultation: normal bowel sounds Skin General skin exam: no rashes or lesions noted and dry skin Neuro General: oriented to person, oriented to place and oriented to time Cranial nerves: Yes Equal, round and reactive pupils present Speech: No Abnormal speech present Gait exam (Neuro): Normal gait present Motor exam (neuro): no tremor noted Extrem Right upper extremity: full ROM Left upper extremity: full ROM Right lower extremity: full ROM; no edema Left lower extremity: full ROM; no edema Psych Mental Status: mental status grossly normal Speech and movement: Normal speech and movement present Affect: normal affect Attitude: cooperative Thought process: Normal thought process present Coding Level of Care Code Est Pt Level 4 (10221) Diagnoses Hypothyroidism, unspecified type E03.9 Hypothyroidism type: unspecified Primary hypertension I10 Hypertension type: primary hypertension Lumbar disc disease with radiculopathy M51.16 Mixed hyperlipidemia E78.2 Hyperlipidemia type: mixed hyperlipidemia BPH associated with nocturia N40.1; R35.1 Additional Codes PHQ-9 - 87610 - PHQ-9 Billing: Yes ([id number]) JOSHUA-7 Assessment Billing - JOSHUA-7 Assessment Tool: JOSHUA-7 Assessment [id number] ([id number]) Assessment & Plan Assessment & Plan (1) Hypothyroidism: Code(s): E03.9 - Hypothyroidism, unspecified Category: Medical Qualifiers: Hypothyroidism type: unspecified Qualified Code(s): E03.9 - Hypoth yroidism, unspecified Plan: Patient continues on levothyroxine 150 mcg with good effect on his TSH. Most recent TSH stable. Will continue to follow to normal TSH. (2) Hypertension: Code(s): I10 - Essential (primary) hypertension Category: Medical Qualifiers: Hypertension type: primary hypertension Qualified Code(s): I10 - Essential (primary) hypertension Plan: Patient's blood pressure slightly elevated today in office. He does report feeling a bit dizzy when standing and his mouth has been dry. Will hold his hydrochlorothiazide to help reduce his ? orthostatic hypotension symptoms. Advised to monitor blood pressure at home. Goal blood pressures to be below 140/90 (3) Lumbar disc disease with radiculopathy: Code(s): M51.16 - Intervertebral disc disorders with radiculopathy, lumbar region Category: Medical Plan: Patient followed by control specialist to which he gets injections and they are managing his pain with morphine and clonazepam (4) HLD (hyperlipidemia): Code(s): E78.5 - Hyperlipidemia, unspecified Category: Medical Qualifiers: Hyperlipidemia type: mixed hyperlipidemia Qualified Code(s): E78.2 - Mixed hyperlipidemia Plan: Patient has been on cholesterol medication for many years. He feels he is only diagnosed with hyperlipidemia due to a nonfasting lab. He will hold off on his cholesterol medication recheck his cholesterol in 3 months and if LDL below 130 will consider holding off on cholesterol medication. Goal LDL is to be below 130 (5) BPH associated with nocturia: Code(s): N40.1 - Benign prostatic hyperplasia with lower urinary tract symptoms; R35.1 - Nocturia Category: Medical Plan: Patient continues on tamsulosin on a nightly basis which he does report is effective on reducing his nocturia. PSAs has been stable. Orders: Orders Complete Blood Count no Diff Today I10 - Essential (primary) hypertension TSH reflex Free T4 Today E03.9 - Hypothyroidism, unspecified Microalbumin, Random (w Creat) Today I10 - Essential (primary) hypertension Comprehensive [place]. Panel Fast Today I10 - Essential (primary) hypertension Prostate Specific Antigen Scr Today N40.1 - Benign prostatic hyperplasia with lower urinary tract symptoms, R35.1 - Nocturia, Z12.5 - Encounter for screening for malignant neoplasm of prostate Medications: New lisinopril 10 mg PO DAILY 90 tabs 1RF 90 days I10 - Essential (primary) hypertension Discontinued lisinopril-hydrochlorothiazide 10-12.5 mg Discontinued Reason: Doctor's Order 1 tab PO DAILY 90 tabs 8RF Patient Instructions: Goal: Blood pressure to remain below 140/90, LDL to be below 130 Barriers: Adherence to physical activity and healthy eating habits
[2024-07-25 11:12] VITALS: BP 140/80; PULSE 96; TEMP 36.1; O2SAT 98; BMI 24.6
--- OUTSIDE RECORDS SUMMARY | 2024-07-25 12:48 | XMS_ITS | Data Portability ---
Author Organization [place] - [facility], [facility] Address [address] [place] [address] Care Team Providers Care Tile Trimmer Name Role Phone JEIMY HACKETT Referring Provider [phone] JEIMY HACKETT Primary Care Provider Assessment Encounter Date Assessment Date Assessment LastModified by Organization Details LastModified Time 02/21/2024 02/21/2024 A .improved tolerance with balance ex's. P Progress as per MD protocol. [email or web address] Not available 02/21/2024 14:01:19 02/25/2024 02/25/2024 A: tolerated all ther ex without pain c/o's, and improved endurance and tolerance overall. P Progress as per MD protocol. [email or web address] Not available 02/25/2024 10:13:50 02/29/2024 02/29/2024 A: Increased endurance with therex noted today. P Progress as per MD protocol. [email or web address] Not available 02/29/2024 15:08:12 03/29/2024 03/29/2024 HPI: 68-year-old male, Nishant Alarcon, [...] - Imaging ordered, obtained, and reviewed at [facility]. - AP and lateral X-rays of the [...] This note was accomplished with use of [employer] software, which is prone to medical and other word misidentification s, grammatical errors, and other misinterpretation s. The physician does strive to identify and correct these, but some could still be present. Please do not hesitate to contact the physician for clarifications. Not available 03/29/2024 14:40:01 06/14/2024 06/14/2024 HPI: 68-year-old male presents for follow-up of right non-displaced lateral tibial plateau fracture sustained on 12/14/2023. Subjective: Patient reports a recent fall on concrete onto bilateral knees on 05/18/2024. He denies dizzy spells but mentions bleeding from his knees and requiring stitches on his head. Patient complains of sciatica affecting his leg and weakness in both knees. He notes pain and slight swelling on the top of his left foot, especially when wearing shoes. Patient experiences morning leg cramps, making it painful to get out of bed. He occasionally experiences back pain, primarily on the left side. Patient has been dealing with back issues for over 30 years. Objective: Physical Exam: - Right knee: - Minimal tenderness - Excellent range of motion - No significant joint effusion - Left foot: - Tenderness on dorsum - Slight swelling noted - Back: - Tenderness at lumbosacral junction - Tenderness in left lower back region Imaging: Imaging ordered, obtained and reviewed at [facility]. - Right knee X-ray (AP and lateral): - No new bony abnormalities - No evidence of displacement of previous non-displaced tibial plateau fracture - Left foot X-ray (Weight-bearing, 3 views: AP, lateral, and oblique): - No evidence of obvious fractures - Normal longitudinal arch maintained - Slight joint space narrowing in talonavicular and calcaneocuboid joints - Lumbar spine X-ray (4 views: AP, lateral, flexion, and extension): - Slight coronal scoliotic deformity - No evidence of anterior listhesis or obvious fractures - Significant foraminal stenosis, particularly at L5-S1 junction - Narrowing of disc space at L5-S1 Assessment: 1. Right non-displaced lateral tibial plateau fracture, stable 2. Bilateral knee contusions post-fall 3. Left foot pain and swelling, no acute fracture 4. Lumbar spondylosis with foraminal stenosis, left-sided sciatica 5. Bilateral lower extremity weakness Plan: - Continue current management for right tibial plateau fracture - Referral to spine surgeon (Dr. Collins) for evaluation of lumbar spondylosis and sciatica - Physical therapy referral for low back pain, bilateral lower extremity weakness, and sciatica - Patient to follow up with current pain management physician for medication management - Recommend comfortable shoes with good arch support for left foot - Follow up as needed Disclaimer: This note was accomplished with use of [employer] software, which is prone to medical and other word misidentification s, grammatical errors, and other misinterpretation s. The physician does strive to identify and correct these, but some could still be present. Please do not hesitate to contact the physician for clarifications. Not available 06/14/2024 16:29:57 Plan of Treatment Reminders Order Date Submit Date Provider Last Modified By Organization Details Last Modified Time Details Appointments None recorded. Lab None recorded. Referral physical therapist referral - BLE WEAKNESS W/ LBP 2024 025 olga Not available 5 13:48:14 Procedures None recorded. Surgeries None recorded. Imaging XR, lumbosacr al spine, 4 or more view - 311 L-SPINE INCLUDE FLEX/EX 2024 025 [facility], [address], [place], [address], 5 13:48:13 XR, knee, 1 or 2 view - 311 2V RIGHT KNEE 2024 025 ol[facility], [address], [place], [address], 5 13:48:14 XR, foot, 3 or more view - 311 3V WB LEFT FOOT 2024 025 [facility], [address], [place], [address], 5 13:48:14 XR, knee, 1 or 2 view - 310 2V RIGHT KNEE 2024 025 [facility], [address], [place], [address], 5 10:04:53 Medication Orders None recorded. Patient TargetsNo targets recorded. Patient InstructionsNo instructions recorded. Reason for Referral Physical Therapist Referral for Closed fracture of tibial plateau BLE WEAKNESS W/ LBP Referring Physician: Buster Victor, Orthopedic Surgery, Encounter Date: 06/14/2024 Results Created Date Observation Date Name Description Value Unit Range Abnormal Flag Note LastModifiedBy Organization Detail LastModifiedTime 01/26/20 24 01/26/2024 XR, knee, 1 or 2 view [email or web address] ?Encry pted=s hAaTro YD8dLq bEUv6g %2BXZw aYqtaq 0bqfl% 2Fg9IQ a4ajBk vP9nXo QUaueC m3YtLR FvZlgJ JJ8mAn HZtai3 2e1385 AC0Kqa XqAVaC uKiQtr MwF INTERFACE [facility] [address], [place], [address], 01/26/2024 13:21:16 01/26/20 24 01/26/2024 XR, knee, 1 or 2 view [email or web address] ?Encry pted=s hAaTro YD8dLq bEUv6g %2BXZw aYqtaq 0bqfl% 2Fg9IQ a4ajBk vP9nXo QUaueC m3YtLR FvZlgJ JJ8mAn HZtai3 5x1673 AC0Kqa XqAVaC uKiQtr MwF INTERFACE [facility] [address] [facility] [address] [address], [place], [address], 01/26/2024 13:21:18 03/29/19 25 03/29/2024 XR, knee, 1 or 2 view [email or web address] ?Encry pted=s hAaTro YD8dLq bEUv6g %2BXZw aYqtaq 0bqfl% 2Fg9IQ a4ajBk vP9nXo QUaueC m3YtLR FvZlgJ JJ8mAn HZtai3 7p2139 AC0Kqb HmCUqG nKiQtr MwF INTERFACE [facility] [address], [address], 03/29/2024 13:28:05 03/29/19 25 03/29/2024 XR, knee, 1 or 2 view [email or web address] ?Encry pted=s hAaTro YD8dLq bEUv6g %2BXZw aYqtaq 0bqfl% 2Fg9IQ a4ajBk vP9nXo QUaueC m3YtLR FvZlgJ JJ8mAn HZtai3 6l9614 AC0Kqb HmCUqG nKiQtr MwF INTERFACE [facility] [address] [facility] [address] [address], [place], [address], 03/29/2024 13:28:08 06/15/19 25 06/14/2024 XR, knee, 1 or 2 view [email or web address] ?Encry pted=s hAaTro YD8dLq bEUv6g %2BXZw aYqtaq 0bqfl% 2Fg9IQ a4ajBk vP9nXo QUaueC m3YtLR FvZlgJ JJ8mAn HZtai3 8r4206 AC0Kla n2MUqG lKiQtr MwF INTERFACE [facility] [address] [address], [place], [address], 06/14/2024 15:01:51 06/15/19 25 06/14/2024 XR, knee, 1 or 2 view [email or web address] ?Encry pted=s hAaTro YD8dLq bEUv6g %2BXZw aYqtaq 0bqfl% 2Fg9IQ a4ajBk vP9nXo QUaueC m3YtLR FvZlgJ JJ8mAn HZtai3 2x9219 AC0Kla n2MUqG lKiQtr MwF INTERFACE [facility] [address] [facility] [address], [place], [address], 06/14/2024 15:01:53 06/15/19 25 06/14/2024 XR, lumbo sacra l spine , 4 or more view [email or web address] ?Encry pted=s hAaTro YD8dLq bEUv6g %2BXZw aYqtaq 0bqfl% 2Fg9IQ a4ajBk vP9nXo QUaueC m3YtLR FvZl JJ8mAn HZtai3 7k3664 AC0Kla n2MWau hKiQtr MwF INTERFACE [facility] [address] [facility] [address], [place], [address], 06/14/2024 15:46:35 06/15/19 25 06/14/2024 XR, lumbo sacra l spine , 4 or more view [email or web address] ?Encry pted=s hAaTro YD8dLq bEUv6g %2BXZw aYqtaq 0bqfl% 2Fg9IQ a4ajBk vP9nXo QUaueC m3YtLR FvZlgJ JJ8mAn HZtai3 0k9036 AC0Kla n2MWau hKiQtr MwF INTERFACE [facility] [address] [facility] [address], [place], [address], 06/14/2024 15:46:37 06/15/19 25 06/14/2024 XR, foot, 3 or more view [email or web address] ?Encry pted=s hAaTro YD8dLq bEUv6g %2BXZw aYqtaq 0bqfl% 2Fg9IQ a4ajBk vP9nXo QUaueC m3YtLR FvZlgJ JJ8mAn HZtai3 4e3169 AC0Kla n2MWau nKiQtr MwF INTERFACE [facility] [address] [facility] [address], [place], [address], 06/14/2024 15:49:30 06/15/19 25 06/14/2024 XR, foot, 3 or more view [email or web address] ?Encry pted=s hAaTro YD8dLq bEUv6g %2BXZw aYqtaq 0bqfl% 2Fg9IQ a4ajBk vP9nXo QUaueC m3YtLR FvZlgJ JJ8mAn HZtai3 3z1876 AC0Kla n2MWau nKiQtr MwF INTERFACE [facility] [address] [facility] [address] [facility] [address], [place], [address], 06/14/2024 15:49:31 Result Notes None recorded. Problems Name Problem SNOMED Code Status Onset Date Resolution Date Notes Provider Name and Address Organization Details Recorded Time Closed fracture of tibial plateau 434527728 Active 2024 BRANDY Perez [facility] 13:22:14 Pain in left foot 8583976578161 07 Active 2024 BRANDY Perez [facility] 15:37:25 Lumbar radiculopat hy 023840804 Active 2024 BRANDY Perez [facility] 5 15:37:51 Problem Notes None recorded. Procedures Surgical History Date Name Laterality Status Provider Name and Address Organization Details Recorded Time 5 08046 Therapeutic Exercise (1:1) completed Inessa Gayle, PHOTOSTAT OPERATOR [address], [place], [address], [facility] 02/28/2024 15:29:44 5 88838 Therapeutic Exercise (1:1) completed Mara Shaffer, PT [address], [place], [address], [facility] 02/25/2024 09:22:48 4 50223 Therapeutic Exercise (1:1) completed Mara Shaffer, PT [address], [place], [address], [facility] 02/21/2024 13:26:19 4 30975 Therapeutic Exercise (1:1) completed Inessa Gayle, PHOTOSTAT OPERATOR [address], [place], [address], [facility] 02/18/2024 13:54:54 4 09812 Therapeutic Exercise (1:1) completed Mara Shaffer, PT [address], [place], [address], [facility] 02/14/2024 13:35:33 4 17257 Therapeutic Exercise (1:1) completed Inessa Gayle, PHOTOSTAT OPERATOR [address], [place], [address], [facility] 02/11/2024 14:24:54 4 60485 Therapeutic Exercise (1:1) completed Mara Shaffer, PT [address], [place], [address], [facility] 01/25/2024 17:25:42 4 26066: Low complexity PT Eval completed Mara Shaffer, PT [address], [place], [address], [facility] 01/25/2024 17:26:35 4 G8420 BMI Normal, No Follow-Up Plan Required completed Mara Deena, PT [address], [place], [address], [facility] 01/25/2024 17:25:39 4 G8427 Current Medication Documented completed Mara Deena, PT [address], [place], [address], [facility] 01/25/2024 17:25:36 Imaging Results None recorded. Procedure Notes None recorded. Medical Equipment None Reported. Allergies No known drug allergies Medications Name Sig Start Date Stop Date [...] Available tamsulosin 0.4 mg capsule TAKE 2 CAPS BY MOUTH DAILY active Not Available Not Available No t Available clonazepam 2 mg tablet TAKE ONE BY MOUTH EVERY DAY AT 8 AT NIGHT. MAY PARTIAL FILL. MAY FILL WHEN DUE. active Not Available Not Available No t Available levothyroxi ne 150 mcg tablet TAKE 1 TABLET BY MOUTH EVERY DAY active Not Available Not Available No t Available omeprazole 20 mg capsule,del ayed release TAKE 1 CAPSULE BY MOUTH DAILY active Not Available Not Available No t Available morphine ER 15 mg tablet,exte nded release TAKE 1 TABLET BY MOUTH DAILY MIDDAY active Not Available Not Available No t Available pravastatin 20 mg tablet TAKE 1 TABLET BY MOUTH EVERY DAY AT BEDTIME active Not Available Not Available No t Available mupirocin 2 % topical ointment active Not Available Not Available Not Available mirtazapine 15 mg tablet TAKE 1/2-1 TABLET BY MOUTH ONCE AT NIGHT AT BEDTIME NEEDED FOR INSOMNIA active Not Available Not Available No t Available lisinopril 10 mg-hydrochl orothiazide 12.5 mg tablet TAKE 1 TABLET BY MOUTH EVERY DAY active Not Available Not Available No t Available hydromorpho ne 4 mg tablet TAKE [...] Updated DateTime 03/29/2024 175.26 cm 20.7 kg/m2 80478.93 g NICKYRONNELL DUMONT [facility] 03/29/2024 13:17:52 Date Recorded Body height Body mass index (BMI) Body weight Provider Name and Address Organization Details Last Updated DateTime 06/14/2024 175.26 cm 20.7 kg/m2 81160.93 g [facility] 06/14/2024 14:56:37 Social History None recorded. Functional Status None recorded. Mental Status None recorded. Family History Nothing Reported. Medical History No medical history recorded. Past Encounters Encounter ID Performer Location Encounter Start Date Encounter Closed Date Diagnosis/Indication Diagnosis SNOMED-CT Code Diagnosis ICD10 Code Diagnosis Note [id number] MD [facility] [address] [facility] [address] [facility] [place] [address] 12/21/2023 12:12:01 01/10/2024 10:50:54 Closed fracture of right tibial plateau 9939409941 [id number] S82.141A [id number] Mara Sh[facility]er [facility] [address] [place] [address] 01/25/2024 14:58:40 01/25/2024 16:05:09 Closed fracture proximal tibia, bicondylar 546187476 S82.141D [id number] MD [facility] 3rd floor [address] [place] [address] 01/26/2024 12:52:45 01/26/2024 20:18:31 Closed fracture of tibial plateau 874391020 S82.141D [id number] Inessa Irizarrye r, PHOTOSTAT OPERATOR [facility] [address] [place], [place] [address] 02/11/2024 13:25:22 02/11/2024 15:13:30 Closed fracture proximal tibia, bicondylar 216813417 S82.141D [id number] Mara Shaffer, PT [facility] [address] [place], [place] [address] 02/14/2024 13:26:51 02/14/2024 15:07:27 Closed fracture proximal tibia, bicondylar 966046696 S82.141D [id number] Inessa Drake r, PHOTOSTAT OPERATOR [facility] [address] [place], [place] [address] 02/18/2024 13:20:21 02/18/2024 14:24:32 Closed fracture proximal tibia, bicondylar 125941651 S82.141D [id number] Mara Shaffer, PT [facility] [address] [place], [place] [address] 02/21/2024 13:11:19 02/21/2024 16:12:49 Closed fracture proximal tibia, bicondylar 687234960 S82.141D [id number] Mara Shaffer, PT [facility] [address] [place], [place] [address] 02/25/2024 09:21:09 02/25/2024 10:14:53 Closed fracture proximal tibia, bicondylar 725248687 S82.141D [id number] Inessaellie Drake r, PHOTOSTAT OPERATOR [facility] [address] [place], [place] [address] 02/29/2024 13:18:42 02/29/2024 15:42:14 Closed fracture proximal tibia, bicondylar 158918564 S82.141D [id number] MD [facility] [address] [place] [address] 03/29/2024 13:02:58 04/18/2024 10:04:52 Closed fracture of tibial plateau 103591780 S82.141D [id number] MD [facility] 3[address] floor [address] [place] [address] 06/14/2024 14:42:12 06/19/2024 13:48:13 Closed fracture of tibial plateau 193834087 S82.141D Pain in left foot 574619 6134 25780 M79.672 Lumbar radiculopathy 128 998397 M54.16 Health Concerns Section Related Observation LastModified by Organization Detai ls LastModified Time None Recorded Concern Status LastModified by Organization Details LastModified Time None Recorded Advance Directives Directive None Recorded Payers Encounter Date Sequence Insurance Name Policy Number Policy Santos Covered Member ID Santos Member ID Guarantor Name 02/21/2024 1 [place] Nishant Alarcon [id number] Nishant Alarcon 02/21/2024 2 [place] [id number] Nishant Alarcon [id number] Nishant Alarcon 02/25/2024 1 [place] Nishant Alarcon [id number] Nishant Alarcon 02/25/2024 2 [place] [id number] Nishant Alarcon [id number] Nishant Alarcon 02/29/2024 1 [place] Nishant Alarcon [id number] 25 Nishant Alarcon 02/29/2024 2 [place] [id number] Nishant Alarcon [id number] Nishant Alarcon 03/29/2024 1 [place] Nishant Alarcon [id number] Nishant Alarcon 03/29/2024 2 [place] [id number] Nishant Alarcon [id number] Nishant Alarcon 06/14/2024 1 [place] Nishant Alarcon [id number] 25 Nishant Alarcon 06/14/2024 2 [place] [id number] Nishant Alarcon [id number] Nishant Alonsorosa Notes Date Note Type Note Provider Name and Address Organization Details Recorded Time 02/21/2024 text/html doing balance ex's at home, and balance feels much better. walking without a cane and feel good. Mara Shaffer, PT [address], [place], [address], [facility] 02/21/2024 14:01:33 02/25/2024 text/html my left hamstring and sciatica has been acting up a little bit. R knee is good. Mara Shaffer, PT [address], [place], [address], [facility] 02/25/2024 10:14:04 02/29/2024 text/html Pt reports he thinks he is getting stronger in his R knee. Inessa Gayle, PHOTOSTAT OPERATOR [address], [place], [address], [facility] 02/29/2024 15:08:32
== END 2024-07-25 11:59 | disposition home or self-care (01) ==
LOC: HO.HMCH 11:07
PROVIDERS: PCP Physician Assistant; Visit Provider Physician Assistant
DX: E03.9 Hypothyroidism, unspecified (principal); I10 Essential (primary) hypertension; M51.16 Intervertebral disc disorders with radiculopathy, lumbar region; E78.2 Mixed hyperlipidemia; N40.1 Benign prostatic hyperplasia with lower urinary tract symptoms; R35.1 Nocturia

== ENCOUNTER → 2024-07-25 11:05 | Outpatient (BNVA) | payer MEDICARE, SELFPAY | PROVIDERS: PCP Physician Assistant; Visit Provider Physician Assistant | DX: E03.9 Hypothyroidism, unspecified (principal); I10 Essential (primary) hypertension; M51.16 Intervertebral disc disorders with radiculopathy, lumbar region; E78.2 Mixed hyperlipidemia; N40.1 Benign prostatic hyperplasia with lower urinary tract symptoms; R35.1 Nocturia | CPT/HCPCS: 96127; 99212 ==

== ENCOUNTER 2024-10-12 13:28 | Outpatient (AMB) | payer MEDICARE, SELFPAY ==
[2024-10-12 13:35] VITALS: BP 118/76; PULSE 96; RESP 18; TEMP 36.2; O2SAT 96; BMI 24.3
--- NOTE | 2024-10-12 13:35 | MHC.PC.OV ---
Vital Signs 10/12/24 13:35 Height 5 ft 5.9 in Weight 150 lb BMI 24.3 BP 118/76 Blood Pressure Location Lt brachial Position Sitting Respiration 18 Pulse 96 Pulse Source Pulse Oximeter Temp 97.1 F Temp Source Temporal Artery Scan Pulse Oximetry (%) 96 Oxygen Delivery Method Room Air Intake Visit Reasons: discuss lesson Information Coordinator Required: No Accompanied by: Self / Same As Patient Allergies No Known Allergies Allergy (Verified 10/12/24 13:54) Medication List - Last Reconciled 10/12/24 by Tucker Loco PA-C clonazepam 2 mg PO BEDTIME levothyroxine 150 mcg PO DAILY lisinopril 10 mg PO DAILY 90 days mirtazapine 15 mg PO BEDTIME morphine ER 15 mg PO DAILY morphine ER 30 mg PO BID nortriptyline 50 mg PO BEDTIME omeprazole 20 mg PO DAILY oxycodone 5 mg PO TID PRN tamsulosin 0.8 mg (2 x 0.4 mg) PO DAILY Tobacco use date assessed: 10/12/24 Fall risk assessment: 1 Fall in past year Last assessed Fall Risk: 10/12/24 Dental Screening Dental Screen Date: 10/12/24 Did you have a dental visit in the last 12 months?: Yes Did you have a dental problem in the last 6 months where you did not have access to dental care?: No Was dental information given to patient?: Patient has dentist HPI discuss lesson HPI Details Patient is a 69-year-old male here today for follow up on imaging. Patient has a past medical history significant for hypothyroidism, hypertension, light tobacco smoker, chronic lumbar spine pain. RENAL LESION-> -Recent lumbar MRI imaging results revealing a right renal lesion. The lesion was discovered incidentally during an MRI for back pain, ordered by a back specialist, which revealed a 7 mm T1 hypodense and T2 hyperintense lesion on the right kidney, not present in the 2018 MRI. The lesion demonstrates diffuse enhancement higher than the renal parenchyma, and a dedicated renal mass protocol MRI has been recommended. The patient has a history of cholelithiasis, which was noted during the imaging. Additionally, he reports experiencing sciatica, which has limited his smoking habits recently. The patient has a history of smoking cigars and pipes, which he started approximately three years ago for cigars and nine years ago for pipes. He smokes a cigar in the morning and a pipe after dinner, but he does not consider himself addicted and does not inhale. He has expressed concerns about the impact of his medications on his liver and kidneys, although previous blood tests have shown normal results. [facility] Medical History Hypertension Surgical History H/O left wrist surgery History of laminectomy Family History Father Cerebral aneurysm Mother No problems noted. Brother Alcoholism Other Substance use disorder Social History Housing: House Alcohol intake: never Patient Tobacco Use Status: Current everyday Tobacco user Tobacco use type: Cigar and Pipe Cigarettes Per Day: 2 e-Cigarette/Vaping Use: Never Used Second Hand Smoke Exposure: No service: No Current occupational status: retired Cognitive needs: No Hearing needs: No Vision needs: Yes Questionnaire PHQ-9 Over the last 2 weeks, how often have you been bothered by any of the following problems? 1. Little interest or pleasure in doing things: not at all 2. Feeling down, depressed, or hopeless: not at all 3. Trouble falling or staying asleep, or sleeping too much: not at all 4. Feeling tired or having little energy: more than half the days 5. Poor appetite or overeating: not at all 6. Feeling bad about yourself - or that you are a failure or have let yourself or your family down: not at all 7. Trouble concentrating on things, such as reading the newspaper or watching television: not at all 8. Moving or speaking so slowly that other people could have noticed. Or the opposite - being so fidgety or restless that you have been moving around a lot more than usual: not at all 9. Thoughts that you would be better off or of hurting yourself in some way: not at all Total score: 2 Depression Screening Interpretation: Positive Depression Screening Follow-up: Existing condition Depression Screening Done: Yes 63661 - PHQ-9 Billing: Yes Source: Developed by Ilana TannerW. Amilcar, Adrian Kim and colleagues, with an educational vinod from [email or web address]. Thrive Questionnaire Date Thrive assessed: 10/12/24 I am a: Patient What is your living situation today?: I have a steady place to live Within the past 12 months, did the food you bought not last and you didn't have the money to get more?: Never true Within the past 12 months, did you worry whether your food would run out before you got money to buy more?: Never true Do you have trouble paying for medicines?: No Do you have trouble getting transportation to medical appointments?: No Do you have trouble paying your heating and electricity bill?: No Do you have trouble taking care of your child, family member or friend?: No Do you have trouble with day-to-day activities such as bathing, preparing meals, shopping, managing finances, etc.?: No Are you currently unemployed and looking for a job?: No Are you interested in more education?: No Please select the resources that you would like help with: None Currently or been in a relationship where the following occur: No concerns reported THRIVE Score: 0 AUDIT C Alcohol Use Questionnaire (AUDIT-C) 1. How often do you have a drink containing alcohol?: Never Total Score: 0 JOSHUA-7 AMB Questionnaire JOSHUA-7 Date JOSHUA - 7 assessed: 10/12/24 Source: Developed by Drs. Bradley Pickens, Ilana Fitzgerald, Adrian Kim and colleagues, with an educational vinod from [email or web address]. Review of Systems Const Denies headache(s) Eyes Denies loss of vision ENT Denies vertigo, Denies dizziness, Denies headache(s) and Denies sore throat Card Denies chest pain, Denies leg edema and Denies lightheadedness Resp Denies cough, Denies hemoptysis and Denies wheezing GI Denies abdominal pain, Denies melena, Denies constipation, Denies diarrhea and Denies vomiting Denies dysuria, Denies urinary frequency and Denies urinary urgency Musc Denies arthralgias, Denies joint swelling, Denies numbness and Denies tingling Neuro Denies Abnormal speech present, Denies behavioral changes, Denies vertigo, Denies dizziness, Denies headache(s), Denies loss of vision, Denies memory loss, Denies numbness and Denies tingling Psych Denies anxiety, Denies behavioral changes, Denies depression, Denies memory loss and Denies panic attacks Abdon/Lymph Denies easy bleeding and Denies easy bruising Aller/Immun Denies wheezing Physical exam (Primary Care) Vital Signs: Last Vital Signs Temp 97.1 F 10/12/24 13:35 Pulse 96 10/12/24 13:35 Resp 18 10/12/24 13:35 BP 118/76 10/12/24 13:35 Pulse Ox 96 10/12/24 13:35 Oxygen Delivery Method Room Air 10/12/24 13:35 BMI result Body Mass Index 24.3 Tobacco/Smoking Status: Tobacco use Status Tobacco use date assessed 10/12/24 10/12/24 13:47 Patient Tobacco Use Status Current everyday Tobacco 10/12/24 13:47 Tobacco use type Pipe,Cigar 10/12/24 13:47 e-Cigarette/Vaping Use Never Used 10/12/24 13:47 Are you ready to quit: No Tobacco cessation counseling provided: Yes Items discussed: Nicotine replacement Relapse Prevention: discussed the importance of a supportive environment, discussed negative mood or depression after quitting, weight gain after smoking is common and discussed dietary, exercise and/or lifestyle changes Number of minutes spent counselin PHQ-9: PHQ-9 Score PHQ-9: Total score 2 10/12/24 13:47 Depression Screening Interpretation: Positive Depression Screening Follow-up: Existing condition Thrive Assessment: Date of Thrive Assessment Date Thrive assessed 10/12/24 10/12/24 13:47 Currently or been in a relationship where the following occur: No concerns reported Const General: healthy appearing, no acute distress, alert and awake Nutritional Appearance: well nourished Orientation/consciousness: oriented to person, oriented to place and oriented to time HENMT Ears: TM's normal bilaterally General nose exam: Normal nasal mucous membranes and turbinates present Eyes Conjunctivae: conjunctivae normal Sclerae: sclerae normal Pupils: Equal, round and reactive pupils present Neck Neck: Yes no lymphadenopathy and Yes no JVD Thyroid: Thyroid normal Carotids: no bruits Resp Effort & Inspection: normal respiratory effort and not tachypneic Auscultation: no crackles, no rales, no rhonchi and no wheezes Cardio Rate: regular rate Rhythm: regular rhythm Heart sounds: no murmurs and normal S1 and S2 GI Palpation (GI): Soft to palpation, nontender, no hepatomegaly and no splenomegaly Auscultation: normal bowel sounds Skin General skin exam: no rashes or lesions noted and dry skin Neuro General: oriented to person, oriented to place and oriented to time Cranial nerves: Yes Equal, round and reactive pupils present Speech: No Abnormal speech present Gait exam (Neuro): Normal gait present Motor exam (neuro): no tremor noted Extrem Right upper extremity: full ROM Left upper extremity: full ROM Right lower extremity: full ROM; no edema Left lower extremity: full ROM; no edema Psych Mental Status: mental status grossly normal Speech and movement: Normal speech and movement present Affect: normal affect Attitude: cooperative Thought process: Normal thought process present Coding Level of Care Code Est Pt Level 3 (49365) Diagnoses Renal lesion N28.9 Additional Codes PHQ-9 - 03477 - PHQ-9 Billing: Yes ([id number]) Assessment & Plan Assessment & Plan (1) Renal lesion: Code(s): N28.9 - Disorder of kidney and ureter, unspecified Category: Medical Plan: The patient will undergo a dedicated renal mass protocol MRI to further evaluate the right renal lesion. A referral to a urologist will be made for further assessment and potential biopsy if necessary. Orders: Orders MR abdomen wo/w con Today N28.9 - Disorder of kidney and ureter, unspecified Referrals Urology Referral N28.9 - Disorder of kidney and ureter, unspecified
--- OUTSIDE RECORDS SUMMARY | 2024-10-12 13:40 | XMS_ITS | Patient Health Record ---
Author Organization [facility] Address [address] [place] [id number] Care Team Providers Care Operations Section Manager Name Role Phone Bradley Lin Unavailable [phone] Reason For Referral No Information Plan Of Treatment No Information
== END 2024-10-12 14:09 | disposition home or self-care (01) ==
LOC: HO.HMCH 13:29
PROVIDERS: PCP Physician Assistant; Visit Provider Physician Assistant
DX: N28.9 Disorder of kidney and ureter, unspecified (principal)

== ENCOUNTER → 2024-10-12 13:28 | Outpatient (BNVA) | payer MEDICARE, SELFPAY | PROVIDERS: PCP Physician Assistant; Visit Provider Physician Assistant | DX: N28.9 Disorder of kidney and ureter, unspecified (principal); F17.200 Nicotine dependence, unspecified, uncomplicated; Z71.6 Tobacco abuse counseling | CPT/HCPCS: 96127; 99212 ==

== ENCOUNTER 2024-11-05 15:54 | Outpatient (REF) | payer MEDICARE, SELFPAY ==
--- NOTE | ~2024-11-05 | MR_ITS ---
EXAMINATION: MR ABDOMEN WITHOUT THEN WITH IV CONTRAST HISTORY: N28.9 - Disorder of kidney and ureter, unspecified COMPARISON: There are no prior studies available for comparison. TECHNIQUE: Axial in and out of phase T1-weighted gradient echo, axial diffusion weighted, and axial and coronal HASTE T2 with fat saturation images were obtained through the abdomen. Subsequently, fat suppressed axial and coronal T1-weighted images were obtained after the intravenous administration of 7 mL Gadavist. FINDINGS: Liver: There is no loss of signal intensity in the liver on opposed phase imaging to suggest steatosis. There is no enhancing liver mass. There is a 7 mm cyst in segment IV. The hepatic and portal veins are patent. There is no intrahepatic biliary dilatation. Gallbladder/biliary tree: Numerous calculi are noted in the gallbladder. The common bile duct is normal in caliber. No intraluminal filling defects are identified to suggest choledocholithiasis. Spleen: The spleen is unremarkable. Pancreas: The pancreas is unremarkable. There is no enhancing pancreatic mass. The pancreatic duct is normal in caliber. Adrenals: The adrenal glands are unremarkable. Kidneys: There is a 7 mm T2 hyperintense lesion at the medial aspect of the lower pole of the right kidney. There is no visible fat in the lesion. Post contrast images demonstrate progressive enhancement. A small renal cell carcinoma is not excluded. The left kidney unremarkable. There is no hydronephrosis. Lymph nodes: There is no retroperitoneal lymphadenopathy in the upper abdomen. Fluid: There is no ascites in the upper abdomen. Visualized bowel: The visualized small and large bowel loops are unremarkable in appearance. Visualized bones: The visualized bones demonstrate normal marrow signal intensity. MR/MR abdomen wo/w con IMPRESSION: 1. 7 mm enhancing lesion at the medial aspect of the lower pole of the right kidney. A small renal cell carcinoma is not excluded. 2. Cholelithiasis. Electronically signed by: Bradley Fagan MD 11/06/2024 07:36 AM EDT
--- OUTSIDE RECORDS SUMMARY | 2024-11-05 16:05 | XMS_ITS | Patient Health Record ---
Author Organization [facility] Address [address] [place] [id number] Care Team Providers Care College Administrator Name Role Phone Bradley Lin Unavailable [phone] Reason For Referral No Information Plan Of Treatment No Information
--- OUTSIDE RECORDS SUMMARY | 2024-11-05 16:05 | XMS_ITS | Clinical Summary ---
Author Organization [facility] Address [address] [place] [address] Care Team Providers Care Landscape Painter Name Role Phone Cm Saunders MD Primary Care Provider [phone] Allergies No known active allergies Medications HYDROmorphone (Dilaudid) 4 mg tablet Take 4 mg by mouth if needed each day. 06/20/2021 Active clonazePAM (KlonoPIN) 2 mg tablet SMARTSI Tablet(s) By Mouth Every Evening 06/13/2021 Active topiramate 50 mg tablet Take 2 tablets by mouth at bedtime. 05/26/2021 Active mirtazapine (Remeron) 15 mg tablet Take 15 mg by mouth at bedtime. 07/07/2021 Active nortriptyline (Pamelor) 50 mg capsule Take 50 mg by mouth at bedtime. 05/26/2021 Active lisinopriL-hydr ochlorothiazide 10-12.5 mg tablet Take 1 tablet by mouth in the morning. 07/01/2021 Active omeprazole (PriLOSEC) [address] capsule Take 20 mg by mouth in the morning. 07/01/2021 Active cholecalciferol , vitamin D3, (Vitamin D-3) 25 MCG (1000 UT) tablet Take 25 mcg by mouth in the morning. Active omega-3 (Fish Oil) 300-1,000 mg capsule Take 1,000 mg by mouth in the morning. Active Active Problems Problem Noted Date Diagnosed Date Dupuytren's contracture 07/11/2021 Family History Medical History Relation Name Comments Stroke Other Relation Name Status Comments Other Alive Social History Tobacco Use Types Packs/Day Years Used Date Smoking Tobacco: Never Smokeless Tobacco: Never Alcohol Use Standard Drinks/Week Comments Not Asked 0 (1 standard drink = 0.6 oz pur e alcohol) Denies Sex and Gender Information Value Date Recorded Sex Assigned at Not on file Legal Sex Male 10:24 AM EDT Gender Identity Not on file Sexual Orientation Not on file Last Filed Vital Signs Vital Sign Reading Time Taken Comments Blood Pressure - - Pulse - - Temperature - - Respiratory Rate - - Oxygen Saturation - - Inhaled Oxygen Concentration - - Weight 61.2 kg (135 lb) 07/11/2021 1:00 PM EDT Height 205.7 cm (6' 9 ) 07/11/2021 1:00 PM EDT Body Mass Index 14.47 07/11/2021 1:00 PM EDT Plan of Treatment Health Maintenance Due Date Last Done Comments CT Colonography 1955 Colonoscopy 1955 Colorectal Cancer Screening 1955 FIT-DNA 1953 FIT 1953 FOBT 1955 Lipid Panel 1955 Sigmoidoscopy 1953 DTaP/Tdap/Td Vaccines (1 - Tdap) 1972 Pneumococcal Vaccine: 50+ Years (1 of 1 - PCV) 09/04/2003 Zoster Vaccines (1 of 2) 09/04/2003 Depression Screening 02/23/2024 COVID-19 Vaccine (4 - 2024- season) 2024 12/16/2020, 05/16/2020, 04/18/2020 Influenza Vaccine (#1) 2024 0, 12/28/2018, 12/09/2018, Additional history exists HIB Vaccines Aged Out No longer eligi ble based on patient's age to complete this topic HPV Vaccines Aged Out No longer eligi ble based on patient's age to complete this topic Hepatitis A Vaccines Aged Out No long er eligible based on patient's age to complete this topic Hepatitis B Vaccines Aged Out No long er eligible based on patient's age to complete this topic IPV Vaccines Aged Out No longer eligi ble based on patient's age to complete this topic Meningococcal B Vaccine Aged Out No l onger eligible based on patient's age to complete this topic Meningococcal Vaccine Aged Out No jade olya eligible based on patient's age to complete this topic Rotavirus Vaccines Aged Out No longer eligible based on patient's age to complete this topic Insurance MEDICARE PART A AND B [employer] Care Teams Landscape Painter Relationship Specialty Start Date End Date Cm Saunders MD [address] [place] [address] PCP - General 07/11/21
== END 2024-11-05 15:55 | disposition home or self-care (01) ==
LOC: HO.MRI 15:54
PROVIDERS: PCP Physician Assistant; Visit Provider Physician Assistant
DX: N28.9 Disorder of kidney and ureter, unspecified (principal)
CPT/HCPCS: 74183; A9585

== ENCOUNTER → 2024-11-05 15:54 | Outpatient (BNV) | payer MEDICARE, SELFPAY | PROVIDERS: PCP Physician Assistant; Visit Provider Radiology Diagnostic Radiology | DX: R93.421 Abnormal radiologic findings on diagnostic imaging of right kidney (principal) | CPT/HCPCS: 74183 ==

== ENCOUNTER 2024-11-16 13:59 | Outpatient (AMB) | payer MEDICARE, SELFPAY ==
--- NOTE | 2024-11-16 13:47 | MHC.OFFVIS ---
Intake Visit Reasons: renal lesion Intake Note: New Patient is present for renal lesion Urology Rx:tamsulosin Blood Thinners:none Imaging completed: MRI 11/05/2024 Program Coordinator Executive Education Required: No Accompanied by: Spouse Allergies No Known Allergies Allergy (Verified 11/16/24 14:01) HPI Comments Details: [place] is a pleasant male. He is a patient of Dr. Loco. He seen for the following urologic conditions - renal lesion incidental - lower urinary tract symptoms Renal lesion MRI small lesion on kidney 7 mm Discussed findings Imaging - 11/16 MRI 7 mm lesion right kidney - cannot exclude Plan interval surveillance Urinary urgency and frequency Progressive Has been on tamsulosin 0.8 mg daily Plan bladder ultrasound Follow-up office cystoscopy [facility] Medical History Hypertension Surgical History H/O left wrist surgery History of laminectomy Family History Father Cerebral aneurysm Mother No problems noted. Brother Alcoholism Other Substance use disorder Social History Housing: House Alcohol intake: never Patient Tobacco Use Status: Current everyday Tobacco user Tobacco use type: Cigar and Pipe Cigarettes Per Day: 2 e-Cigarette/Vaping Use: Never Used Second Hand Smoke Exposure: No service: No Current occupational status: retired Cognitive needs: No Hearing needs: No Vision needs: Yes Review of Systems Const Denies chills and Denies fever(s) Card Reports no additional complaints and Denies syncope Resp Denies cough GI Denies abdominal pain and Denies heartburn Reports as per HPI and Denies change in libido Neuro Denies syncope Psych Denies change in libido Endo Denies change in libido Physical Exam Const General: cooperative, healthy appearing, comfortable and no acute distress Orientation/consciousness: patient oriented x3 HEENT Face and sinus: Yes normal facial exam Mouth: moist mucous membranes Neck Neck: Yes normal visual inspection, Yes full ROM and Yes trachea midline Chest Chest palpation & inspection: normal inspection of the chest Resp Effort & Inspection: normal respiratory effort, able to speak in complete sentences and no respiratory distress GI Inspection: Yes normal to inspection Back/Spine/Pelvis Cervical Spine: normal cervical lordosis Thoracic/Lumbar Spine: thoracic and lumbar spine normal to inspection Skin General skin exam: no rashes or lesions noted Neuro General: patient oriented x3, gait normal, tone normal and moves all extremities Extrem General: Yes normal to inspection and Yes capillary refill normal Results AMB Urinalysis, Automated UA Leukoctes 0 Lizeth/uL Last Edit by JAGRUTI Quintanilla on 11/16/24 16:13 UA Nitrite Last Edit by Nay Dutton [facility] on 11/16/24 16:13 UA Urobilinogen 3.5 mg/dL Last Edit by Nay Dutton [facility] on 11/16/24 16:13 UA Protein 0 mg/dL Last Edit by Nay Dutton [facility] on 11/16/24 16:13 UA pH 6.0 Last Edit by Nay Dutton [facility] on 11/16/24 16:13 UA Blood 0 Mayur/uL Last Edit by Nay Dutton [facility] on 11/16/24 16:13 UA Specific [place] 1.010 Last Edit by Nay Dutton [facility] on 11/16/24 16:13 UA Ketone Last Edit by Nay Dutton [facility] on 11/16/24 16:13 UA Bilirubin 0 mg/dL Last Edit by Nay Dutton [facility] on 11/16/24 16:13 UA Glucose 0 mg/dL Last Edit by Nay Dutton [facility] on 11/16/24 16:13 Results Reviewed Results Reviewed: Laboratory Last Values Urine pH (Auto) 6.0 11/16/24 16:12 Specific [place] (Auto) 1.010 11/16/24 16:12 Urine Protein (Auto) 0 mg/dL 11/16/24 16:12 Glucose (UA)(Auto) 0 mg/dL 11/16/24 16:12 Urine Blood (Auto) 0 Mayur/uL 11/16/24 16:12 Urine Bilirubin (Auto) 0 mg/dL 11/16/24 16:12 Urine Urobilinogen (Auto) 3.5 mg/dL 11/16/24 16:12 Leukocyte Esterase (Auto) 0 Lizeth/uL 11/16/24 16:12 Assessment & Plan Assessment & Plan (1) BPH associated with nocturia: Code(s): N40.1 - Benign prostatic hyperplasia with lower urinary tract symptoms; R35.1 - Nocturia Category: Medical Plan Bladder ultrasound check cystoscopy Orders: Orders US bladder 11/16/24 R39.12 - Poor urinary stream AMB Urinalysis Automated 11/16/24 Z13.9 - Encounter for screening, unspecified Patient Instructions: This note is constructed using voice recognition software. While every effort has been made to ensure accuracy space planner errors may have been included. Imaging studies, laboratory and physical exam results were discussed and reviewed in detail. No major barriers to patient understanding were identified. An opportunity to ask questions regarding the treatment plan was provided. All questions were answered. The patient expressed understanding and agreement with the above treatment plan. The patient is aware they should contact our office by phone for worsening of their current condition or the appearance of new urologic symptoms. Compliance is encouraged with any medications and followup testing that is ordered. It is a privilege to participate in the urologic care of your patient. If you have any questions or concerns regarding treatment for the above conditions, or other urologic issues, please do not hesitate to contact me. The office telephone contact is [phone]. Sincerely, Dr Cliff Sanches MD, [facility] - Urology Compassionate Specialist Care for the Genitourinary System Coding Level of Care Code New Pt Level 3 (35476) Diagnoses BPH associated with nocturia N40.1; R35.1
--- OUTSIDE RECORDS SUMMARY | 2024-11-16 18:29 | XMS_ITS | Patient Health Record ---
Author Organization [facility] Address [address] [place] [id number] Care Team Providers Care Senior Scheduler Name Role Phone Bradley Lin Unavailable [phone] Reason For Referral No Information Plan Of Treatment No Information
--- OUTSIDE RECORDS SUMMARY | 2024-11-16 18:29 | XMS_ITS | Data Portability ---
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 Mind: Cognition: Cognitive changes, worsened after a fall with mild head trauma: Labs: will order Head imaging: will check in [facility] system Assessment: would assess if there is a subsequent visit. Medications: Ensure meds are in pill box. Matters most: regaining a purpose ACP: Health care proxy: Valerie: - I personally spent 150 minutes preparing for, caring for the patient (F2F and non-F2F), and finalizing the visit for this patient, which included discussion with patient and/or family about diagnosis, prognosis, recommendations , risk/benefits, risk reduction and education of above. Thank you for this interesting consult. Will f/u in as needed - will continue to discuss. Note that we reviewed that there is no magic pill to fix all of this and that he might feel better off some his medications - but will defer to his current prescribers. Not available 2024 10:20:47 Plan of Treatment Reminders Order Date Submit Date Provider Last Modified By Organization Details Last Modified Time Details Appointments None recorded. Lab vitamin B12, serum 025 [facility], [address] [place], [address], 5 14:42:59 mma (methylma lonic acid), serum [address] [facility], [address] [place], [address], 5 14:42:59 folate, serum [address] [facility], [address] [place], [address], 5 14:42:59 TSH + free T4, serum [address] [facility], [address] [place], [address], 5 14:42:59 RPR (rapid plasma reagin), serum [address] [facility], [address] [place], [address], 5 14:42:59 Referral None recorded. Procedures None recorded. Surgeries None recorded. Imaging None recorded. Medication Orders None recorded. Patient TargetsNo targets recorded. Patient Instructions Encounter Date Encounter Id Patient Instructions Last Modified By Organization Details Last Modified Time 08/30/20241991 learning about mood disorders Not available 2024 10:22:14 Reason for Referral None Reported. Problems Name Problem SNOMED Code Status Onset Date Resolution Date Notes Provider Name and Address Organization Details Recorded Time Alzheimer's disease 50016040 Active 2024 BRANDY Rico [employer] [facility] [employer] [employer] [facility] 13:27:03 Pain 72159862 Active 2024 BRANDY Rico [facility] 13:47:02 Hypercholester olemia 02278746 Active 2024 BRANDY Rico [employer] [facility] 13:47:08 Depressive disorder 24567997 Active 2024 [facility]riano [facility]ulkner [facility] 13:47:14 Memory impairment 303233332 Active 2024 Cipriano faulkner [facility] [employer] [facility] 13:47:23 Gastroesophage al reflux disease 303855495 Active 2024 [facility]ipriano [facility]ulkner [facility] 13:47:32 Arthritis 0179359 Active 2024 Cipriano Sebastian [facility] 13:47:55 Persistent insomnia 386526418 Active 2024 Cipriano Sebastian [facility] 13:53:26 Disorder of thyroid gland 53329422 Active 2024 Cipriano Sebastian faulkner [facility] [employer] [facility] 5 13:53:57 Hypertensive disorder 63954288 Active 2024 Cipriano Sebastian [facility]ulk[facility] 13:54:36 Problem Notes None recorded. Medical Equipment None Reported. Allergies No known drug allergies Medications Name Sig Start Date Stop Date Status Note LastModified by Organization Details LastModified Time prednison e 10 mg tablet TAKE 4 TABS BY MOUTH DAILY FOR 2 DAYS,THE N DECREASE D BY ONE PILL EVERY 2 DAYS. 08/30 completed Not Available Not Available Not Available morphine ER 30 mg tablet,ex tended release TAKE 1 TABLET BY MOUTH EVERY AM AND NIGHTIME MAY FILL LESSER AMOUNT. MAY FILL WHEN DUE active Not Available Not Available No t Available acetamino phen 500 mg tablet TAKE 2 TABLETS EVERY 6 HOURS BY ORAL ROUTE FOR 30 DAYS. active Not Available Not Available No t Available tamsulosi n 0.4 mg capsule TAKE 2 CAPS BY MOUTH DAILY active Not Available Not Available No t Available lisinopri l 10 mg tablet TAKE 1 TABLET BY MOUTH EVERY DAY FOR 10 DAYS 2024 active Not Available Not Available Not Avai lable clonazepa m 2 mg tablet TAKE ONE BY MOUTH EVERY DAY AT 8 AT NIGHT. MAY PARTIAL FILL. MAY FILL WHEN DUE. active Not Available Not Available No t Available levothyro xine 150 mcg tablet TAKE 1 TABLET BY MOUTH EVERY DAY active Not Available Not Available No t Available omeprazol e 20 mg capsule,d elayed release 20 MG ORALLY DAILY active Not Available Not Available No t Available morphine ER 15 mg tablet,ex tended release TAKE 1 TABLET BY MOUTH EVERY DAY (MIDDAY) active Not Available Not Available No t Available pravastat in 20 mg tablet TAKE 1 TABLET BY MOUTH EVERY DAY AT BEDTIME active stopping for three months Not Available Not Available Not Available mupirocin 2 % topical ointment APPLY TO ABDOMEN AREA WHERE TREATED WITH ED&C 3 TIMES DAILY X 7 DAYS 08/30 completed Not Available Not Available Not Available mirtazapi ne 15 mg tablet TAKE 1/2-1 TABLET BY MOUTH ONCE AT NIGHT AT BEDTIME NEEDED FOR INSOMNIA active Not Available Not Available No t Available lisinopri l 10 mg-hydroc hlorothia zide 12.5 mg tablet TAKE 1 TABLET BY MOUTH EVERY DAY 08/30 completed Not Available Not Available Not Available hydromorp rohit 4 mg tablet TAKE ONE TAB BY MOUTH DAILY NEEDED SEVERE PAIN, MAY FILL FEWER 08/30 completed Not Available Not Available Not Available nortripty line 50 mg capsule TAKE 1 CAPSULE BY MOUTH AT BEDTIME active Not Available Not Available No t Available diazepam 5 mg tablet TAKE 1 TABLET BY MOUTH ONCE ONE HOUR BEFORE MRI 08/30 completed Not Available Not Available Not Available oxycodone 5 mg tablet TAKE 2 TABLETS BY MOUTH 3 TIMES A DAY NEEDED FOR SEVERE PAIN active Not Available Not Available No t Available topiramat e 50 mg tablet TAKE 2 TABLETS BY MOUTH AT BEDTIME active Not Available Not Available No t Available Vitals Date Recorded Heart rate Body height Body mass index (BMI) Body weight Oxygen saturation Oxygen saturation in Arterial blood by Pulse oximetry Systolic And Diastolic Provider Name and Address Organization Details Last Updated DateTime 5 86 /min 177.8 cm 22.1 kg/m2 85398.2 2 g 100 % 100 % 120/70 mm[Hg] [facility] 5 13:24:44 Social History None recorded. Functional Status None recorded. Mental Status None recorded. Family History Nothing Reported. Medical History No medical history recorded. Past Encounters Encounter ID Performer Location Encounter Start Date Encounter Closed Date Diagnosis/Indication Diagnosis SNOMED-CT Code Diagnosis ICD10 Code Diagnosis IMO Codes Diagnosis Note 1991 MD [facility] [address] [facility] [address] [place] [address] 08/30/2024 13:10:45 2024 10:24:00 Chronic pain syndrome 383759489 G89.4 27553 Assessment : Patient has a long-stand ing history of chronic pain following a laminectom y in 1986, which led to failed back syndrome. He has been managing pain through exercise, meditation , and narcotic medication s. Recent falls have exacerbate d his sciatica. Current pain management includes morphine ER and oxycodone. The patient's expresses concern about his dependence on narcotics. Depression appears to be affecting his pain perception .Plan:- Currently on pain medication s as follows:- Morphine ER 30 mg BID, Morphine ER 15 mg midday & Oxycodone 10 mg tid prn for severe pain- Follow up with pain clinic for [facility] pain management - Discuss buprenorph ine as a potential alternativ e for pain management with pain doctor- Consider reducing nortriptyl ine and clonazepam to minimize fall risk- Encourage continuati on of non-pharma cological pain management strategies (exercise, meditation ) Abnormal gait 70936107 R 26.81 447312 with high fall risk:Asses sment: Patient has experience d two significan t falls in the past year, with the most recent fall on May 18 resulting in facial injuries requiring stitches. These falls have worsened his sciatica and potentiall y contribute d to cognitive changes. The patient reports weakness and mobility issues, which increase his risk of future falls.Plan :- Recommend use of two walking sticks for improved stability- Consider repeat referral to physical therapy for gait assessment and strengthen ing exercises- Encourage participat ion in senior warm water exercise class at [facility]- Consider referral to a care trainer specializi ng in movement and strength training for older adults Cognitive function finding [id number] R41.89 [id number] Assessment : Patient reports short-term memory issues and cognitive changes since the fall in April. He has a history of traumatic brain injury (TBI) which may be contributi ng to these symptoms. No CT scan was performed after the recent fall.Plan: - Consider neurologic al evaluation to assess cognitive function and determine if further imaging (e.g., CT scan) is warranted- Monitor cognitive symptoms and their impact on daily functionin g- Would work to taper off medication s that can affect cognition - including clonazapam , nortriptyl ine. - There are some things that we know can help with overall cognition: Important to be an active listener - repeat back, write things down.Our ability to multi- task gets worse as we get olderTry to just do one thing at a timePhysic al activity is the best thing - 30 minutes 4-5 times a week but start off slow and build upMental activity - learning a new skillSocia l activityMe ditation and/or Antonio Chi may help Depressive disorder 0794 4601 F32.A 10322 Assessment : Patient presents with symptoms suggestive of depression , which is impacting his pain perception and overall quality of life. His mood appears to be more down than anxious. The patient's notes his emotional sensitivit y and the impact of his physical limitation s on his artistic pursuits and identity. Appreciate all of the losses Nishant has had to endure including loss of mobility, use of his right hand to paint and ongoing pain concerns.C urrently on mirtazapin e 15 mg 1/2 - 1 tablet at night prn insomniaPl an:- Consider starting SNRI to help with pain and mood- Consider psychologi moises evaluation for comprehens radha assessment and treatment of depression - Explore non-pharma cological interventi ons for mood management Hypothyroidism 40321494 E03.9 70336872 Hypothyroi dismAssess ment: Patient has a history of hypothyroi dism, currently managed with levothyrox ine.Plan:- Continue levothyrox ine 150 mcg daily Insomnia 553477163 G47.0 0 [id number] Assessment : Patient is taking multiple medication s for sleep, including clonazepam , mirtazapin e, and topiramate , prescribed by a pain doctor.- Currently on clonazepam 2 mg at bedtime, mirtazapin e (dose not specified) , topiramate (dose not , and nortriptyl ine 50 mg qhs- would be great to see what can be tapered off - including nortriptyl ine and clonazepam which can affect cognition. - Consider sleep hygiene education and non-pharma cological interventi ons for insomnia Musculoske letal fibromatosis 706167839 M72.0 689086 Hand Dysfunctio nAsfrancesca t: Patient reports hand issues affecting his ability to perform artistic activities . He has a history of Dupuytren' s contractur e surgery on the pinky and ring finger, with physical therapy from January 01, 2021, for 6 months. A previous hand specialist 's procedure resulted in loss of function for shooting, drawing, painting, and playing the keyboard.A ppreciate that Nishant now has sig distrust of health profession als and is not looking for any help around this.Plan: - Consider referral to hand specialist for second opinion and potential treatment options- Assess need for occupation al therapy to improve hand function and adapt activities Health Concerns Section Related Observation LastModified by Organization Detai ls LastModified Time None Recorded Concern Status LastModified by Organization Details LastModified Time None Recorded Advance Directives Directive None Recorded Payers Insurance Date Sequence Insurance Name Policy Number Policy Santos Covered Member ID Santos Member ID Guarantor Name 10/30/2024 1 [place] [id number] Nishant Alarcon [id number] Nishant Alarcon 08/30/2024 2 [place] [id number] Nishant Alarcon [id number] Nishant Alarcon Notes Date Note Type Note Provider Name and Address Organization Details Recorded Time 5 text/html ROS as noted in the HPI PCP: [facility] Referred by: self/wifePerson to contact for follow up visits: self/ Goals for visit: N/A Problems or specific concerns for this visit: * To learn if any specific areas of my body need medical attention. I have chronic pain, sciatica (left). Started in 1985. I am ... ... ... steady regimen of meds PHQ9: 6GAD7: 0 Patient history: : Had bad hand surgery and now his right fourth and fifth fingers are in a claw.Legs are freezing, they are getting much worse. 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 Family/caregiver history: Darlene, . Chief ComplaintChronic pain exacerbated by recent falls, difficulty walking due to sciatica, cognitive changes and memory issues following traumatic brain injury, depression [facility] a [facility] of chronic pain, failed back syndrome, and recent falls presenting for evaluation of ongoing pain and functional decline. He reports a history of laminectomy in February 1986 leading to failed back syndrome and chronic pain, which he has managed through exercise and meditation. The patient describes two recent falls that have exacerbated his condition. The first fall occurred a year ago while walking his dog. The second fall happened on May 18 when he hit a crack in the sidewalk, resulting in a need for stitches. These falls have worsened his sciatica. He recently had an MRI last Wednesday to evaluate his condition further. The patient also reports a traumatic brain injury (TBI) affecting his memory, with long-term memory remaining intact but short-term memory declining. He notes cognitive changes since the fall in April, though no CT scan was performed at that time. In addition to his back and leg issues, the patient mentions hand problems stemming from a surgical complication. He underwent Dupuytren's contracture surgery on his pinky and ring finger and started physical therapy on January 01, 2021, for 6 months. However, something went wrong with the procedure, leaving him unable to shoot, draw, paint, or play the keyboard. 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 The patient reports feeling weak and experiencing leg freezing since his falls. The patient also mentions swelling in his ankle, which he attributes to possible insect bites. Regarding his current treatment regimen, the patient takes several medications for pain management, sleep, and other health conditions. He reports taking clonazepam 2 mg at bedtime for sleep, levothyroxine for hypothyroidism, lisinopril for blood pressure, mirtazapine and topiramate for sleep, tamsulosin for enlarged prostate, pravastatin 20 mg, nortriptyline 50 mg at bedtime, morphine ER 30 mg twice a day, morphine ER 15 mg, and oxycodone. He stopped taking hydrochlorothiazide 3 weeks ago to address frequent urination. The patient denies taking Tylenol, Dilaudid, upzc-rbb-zfwjvna supplements, Tylenol PM, or Advil PM. The patient's expresses concern about his risk of falling again and his dependence on narcotics. She notes that depression affects his pain and that he needs medical attention and extra special care. Medical History includes- Traumatic brain injury (TBI) affecting memory- Sciatica, leading to [facility] at age 50- Failed back syndrome and chronic pain following laminectomy in February 1986- Hypothyroidism- Hypertension- Enlarged prostate Surgical History- Laminectomy in February 1986, resulting in failed back syndrome and chronic pain. Went to [facility] but they didnt have a lot to offer- Dupuytren's contracture surgery on pinky and ring finger, prior to December 2020 Medications and Supplements include:- Clonazepam 2 mg at bedtime- Prescribed by pain doctor for sleep- Levothyroxine- For hypothyroidism- Lisinopril- For blood pressure- Hydrochlorothiazide- Stopped 3 weeks ago to see if it would help with frequent urination- Mirtazapine- Prescribed by pain doctor for sleep- Topiramate- Prescribed by pain doctor for sleep- Tamsulosin- For enlarged prostate- Pravastatin 20 mg- Nortriptyline 50 mg at bedtime- Morphine ER 30 mg twice a day- Morphine ER 15 mg- Oxycodone- Dilaudid- Discontinued Review of SystemsGeneral: Positive for fatigue.Genitourinary: Positive for frequent urination.Musculoskeleta l: Positive for chronic pain, sciatica, weakness.Neurological: Positive for memory issues, particularly short-term memory.Psychiatric: Positive for depression. Recent ED visits/hospitalizations: [facility]ell in the [facility] 12/12/24 (incorrect date provided by Pt.). injured my knee + ... ligaments. no broken bones ... 3 mos. + 3 wks. physical therapy Function:ADL: (bathing, dressing, toileting, transferring, continence, feeding)All indepIADL: ( Telephone, shopping, food preparation, housekeeping, laundry, Transportation, Medications, Finances)All indep Supports:Help at home: NoDo you provide care for a family member? No General information about you: Mobility:Assistive device: noAny falls? yesIf yes, any injuries? dislocated knee, hit face above right eye and needed stitchesAre you afraid of falling? yes Sleep:How would you describe your sleep? (options: good, fair, poor) poorDo you snore? (options: yes, no, don't know) yesHave you ever been tested for sleep apnea? (yes, no, don't know) no answer Driving?: yesAny concerns? n/a Nutrition:Appetite: no answerHas food intake declined over the past 3 months? no answerWeight loss/gain: loss and gain both checkedWould you like assistance with meals? n/a Finances: Any concerns? no Health Maintenance:Overall health: goodDepression//sadness: yesAnxiety: noMemory loss: yesAre you or others concerned about your memory?: yesFeels safe at home: yesHearing Test: noEye exam: noDentist: no answerHave you decreased the amt of time you spend with family/friends in the past year?: * yes Physical fitness: walks dog Frailty Screening:Fatigue: yesResistance (able to climb a flight of stairs): yesAerobic (able to walk a block): n/aRegular Activity: - yesPresence of > 5 illnesses(HTN, DM, CA, chronic respiratorydisease, MT, CVA, arthritis (or RA), CKD, or liver disease): NoWeight loss > 5% in the past 6 months: noScore: 1-2 (Robust: 0, Pre-frail: 1-2, Frail: >=3) Social History:Born/raised: [place], [place]. Had a brotherChildhood: greatEducational level: BA Nigerien, played in bands, brock on the sideLiving situation: Single Family in [place], lives with and bird dogs - they now have Bessie, Nigerien Avila SpanielSexual orientation: StraightPartnership status: x 1995Occupation: Retired; In his 50's, he got a disability 2/2 constant sciatica. 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 The rent was raised, but he now shares this with another artist. Family History- Brother: at unknown age, history of alcoholism and drug addiction- Mother: , within six months of son's - Father: History of gambling Emma Cassidy MD [address] [place] [address],[facility], [place], [address], [facility] - [facility] 2024 10:23:04
--- OUTSIDE RECORDS SUMMARY | 2024-11-16 18:29 | XMS_ITS | Data Portability ---
Author Organization [facility], [employer] Address [address] [place] [address] Care Team Providers Care Health Care Administrator Name Role Phone JEIMY HACKETT Referring Provider [phone] JEIMY HACKETT Primary Care Provider [phone] Assessment Encounter Date Assessment Date Assessment LastModified [...] - Imaging ordered, obtained, and reviewed at [facility]. - AP and lateral X-rays of the [...] This note was accomplished with use of [employer] software, which is prone to medical and [...] Imaging: Imaging ordered, obtained and reviewed at [facility]. - Right knee X-ray (AP and lateral): [...] This note was accomplished with use of [employer] software, which is prone to medical and [...] [facility], [address], [place], [address], 5 13:48:13 XR, knee, 1 or 2 view - 311 2V RIGHT KNEE 2024 025 [facility], [address], [place], [address], 5 13:48:14 XR, foot, 3 or more view - 311 3V WB LEFT FOOT 2024 025 [facility], [address], [place], [address], 5 13:48:14 XR, knee, 1 or 2 view - 310 2V RIGHT KNEE 2024 025 [facility], [address], [place], [address], 5 10:04:53 Medication Orders None recorded. Patient [...] a4ajBk vP9nXo QUaueC m3YtLR FvZlgJ JJ8mAn HZtai3 2f8124 AC0Kqa XqAVaC uKiQtr MwF INTERFACE [facility] [address], [place], [address], 01/26/2024 13:21:16 01/26/20 24 01/26/2024 XR, knee, 1 or 2 view [email or web address]:/ [email or web address] ?Encry pted=s hAaTro YD8dLq bEUv6g %2BXZw aYqtaq 0bqfl% 2Fg9IQ a4ajBk vP9nXo QUaueC m3YtLR FvZlgJ JJ8mAn HZtai3 6c0358 AC0Kqa XqAVaC uKiQtr MwF INTERFACE [facility] [address], [address], 01/26/2024 13:21:18 03/29/19 25 03/29/2024 XR, knee, 1 or 2 view [email or web address]:/ [email or web address] ?Encry pted=s hAaTro YD8dLq bEUv6g %2BXZw aYqtaq 0bqfl% 2Fg9IQ a4ajBk vP9nXo QUaueC m3YtLR FvZlgJ JJ8mAn HZtai3 0n7104 AC0Kqb HmCUqG nKiQtr MwF INTERFACE [facility] [address], [address], 03/29/2024 13:28:05 03/29/19 25 03/29/2024 XR, knee, 1 or 2 view [email or web address]:/ [email or web address] ?Encry pted=s hAaTro YD8dLq bEUv6g %2BXZw aYqtaq 0bqfl% 2Fg9IQ a4ajBk vP9nXo QUaueC m3YtLR FvZlgJ JJ8mAn HZtai3 2o5841 AC0Kqb HmCUqG nKiQtr MwF INTERFACE [facility] [address], [address], 03/29/2024 13:28:08 06/15/19 25 06/14/2024 XR, knee, 1 or 2 view [email or web address]:/ [email or web address] ?Encry pted=s hAaTro YD8dLq bEUv6g %2BXZw aYqtaq 0bqfl% 2Fg9IQ a4ajBk vP9nXo QUaueC m3YtLR FvZlgJ [facility] HZtai3 9w0285 AC0Kla n2MUqG lKiQtr MwF INTERFACE [facility] [address] [address], [place], [address], 06/14/2024 15:01:51 06/15/19 25 06/14/2024 XR, knee, 1 or 2 view [email or web address] ?Encry pted=s hAaTro YD8dLq bEUv6g %2BXZw aYqtaq 0bqfl% 2Fg9IQ a4ajBk vP9nXo QUaueC m3YtLR FvZl [facility] HZtai3 4f4923 AC0Kla n2MUqG lKiQtr MwF INTERFACE [facility] [address] [address], [place], [address], 06/14/2024 15:01:53 06/15/19 25 06/14/2024 XR, lumbo sacra l spine , 4 or more view [email or web address]:/ [email or web address] ?Encry pted=s hAaTro YD8dLq bEUv6g %2BXZw aYqtaq 0bqfl% 2Fg9IQ a4ajBk vP9nXo QUaueC m3YtLR FvZl [facility] HZtai3 4g1690 AC0Kla n2MWau hKiQtr MwF INTERFACE [facility] [address] [facility] [address], [place], [address], 06/14/2024 15:46:35 06/15/19 25 06/14/2024 XR, lumbo sacra l spine , 4 or more view [email or web address] ?Encry pted=s hAaTro YD8dLq bEUv6g %2BXZw aYqtaq 0bqfl% 2Fg9IQ a4ajBk vP9nXo QUaueC m3YtLR FvZlJ JJ8mAn HZtai3 5u5249 AC0Kla n2MWau hKiQtr MwF INTERFACE [facility] [address] [address], [place], [address], 06/14/2024 15:46:37 06/15/19 25 06/14/2024 XR, foot, 3 or more view [email or web address]:/ [email or web address] ?Encry pted=s hAaTro YD8dLq bEUv6g %2BXZw aYqtaq 0bqfl% 2Fg9IQ a4ajBk vP9nXo QUaueC m3YtLR FvZlgJ JJ8mAn HZtai3 1m3892 AC0Kla n2MWau nKiQtr MwF INTERFACE [facility] 300 [facility] [address], [place], [address], 06/14/2024 15:49:30 06/15/19 25 06/14/2024 XR, foot, 3 or more view [email or web address]:/ [email or web address] ?Encry pted=s hAaTro YD8dLq bEUv6g %2BXZw aYqtaq 0bqfl% 2Fg9IQ a4ajBk vP9nXo QUaueC m3YtLR FvZlgJ JJ8mAn HZtai3 8g1096 AC0Kla n2MWau nKiQtr MwF INTERFACE [facility] [address] [address], [place], [address], 06/14/2024 15:49:31 Result Notes Documentation Provider Name and Address Organization Details Recorded Time Xr, Knee, 1 Or 2 View : [email or web address] Encrypted=fuToTutLC0fZbwZ Uv6g%3FMQqfAergk2dqug%2Fg 2TJv2cpCziT6aDkWXqmqCm8Oq AXGaSlvYEX5cZeFInqh89u777 6IJ6VsyMtUBwUiGrIbqCgZ Not Available [facility] 03/29/2024 13:28: 06 Xr, Knee, 1 Or 2 View : [email or web address] Encrypted=ynRfDxgBN8mKbmF Uv6g%7ZGOebZwoim7pchu%2Fg 5QQc6pkSxiF7fNpDMgmlXz2Zl SXImVrcSXZ1pIwJAhaf33j191 1PL9ZunBsWPsSsPhOoeVeT Not Available [facility] 03/29/2024 13:28: 08 Xr, Knee, 1 Or 2 View : [email or web address] Encrypted=rsLhFceSV7uYnuH Uv6g%4KOJpdOnuir6ngiy%2Fg 9JIt7rcGcfT9mMwGMpqhIi9Qr VCSjPioZXP8lVaDKyym19d344 7PY1Iwtv3LAmOdKyCmdBdO Not Available [facility] 06/14/2024 15:01: 52 Xr, Knee, 1 Or 2 View : [email or web address] Encrypted=lpEhKioTG0rInqW Uv6g%1QKYmzUjybr2nsfl%2Fg 6OZm6ffNtnX6iIoOPexfIr0Jv DHNxCwlOEU9rVuZYewk04a774 2ZC9Gran4OXdFgLpBxmHvU Not Available [facility] 06/14/2024 15:01: 53 Xr, Lumbosacral Spine, 4 Or More View : [email or web address] Encrypted=qiGtAojFJ9qAwfT Uv6g%2YKVubCmcaj9ppax%2Fg 8SVy4wkMdcR0uGeAQqgsFh8Nc TXOzWwfHEN9fRhTNlxt53p379 6IW9Jhfg2ERhhsApAxyGrD Not Available [facility] 06/14/2024 15:46: 36 Xr, Lumbosacral Spine, 4 Or More View : [email or web address] Encrypted=dqIlDzfFX2aWuoY Uv6g%1QLXtgVhszw3lcmq%2Fg 3CZq4ogRliI8hFtLYhvyRj7Ii RSCnWcoRVP9rEyEMlig94r864 0YL7Igsu0OLvfpAuXnaHwE Not Available [facility] 06/14/2024 15:46: 37 Xr, Foot, 3 Or More View : [email or web address] Encrypted=vrEgOlbSB9wPjgP Uv6g%8GMAevHkesl3eggl%2Fg 9DQi2fcPquQ8lCxTPaztUi2Xt OLCcObwBNA8wWmXSntb54d040 2IV0Nhhb0HVqfyVeTxyHqX Not Available [facility] 06/14/2024 15:49: 30 Xr, Foot, 3 Or More View : [email or web address] Encrypted=aiBuKiyGX2kJqeT Uv6g%4GXXlfNadar9filz%2Fg 7OJp6gqYuvB0tHrBXbvnBf1Su KFEvNsgZEF7eHsDRnmz26n127 0HC6Ywkn9UFoulImFvdSnR Not Available [facility] 06/14/2024 15:49: 32 Problems Name Problem SNOMED Code Status Onset Date Resolution Date Notes Provider Name and Address Organization Details Recorded Time Closed fracture of tibial plateau 173749501 Active 2024 BRANDY [facility] 13:22:14 Pain in left foot 8786640457830 07 Active 2024 BRANDY [facility] 5 15:37:25 Lumbar radiculopat hy 925145259 Active 2024 BRANDY [facility] 15:37:51 Problem Notes None recorded. Procedures Surgical History Date Name Laterality Status Provider Name and Address Organization Details Recorded Time 5 72417 Therapeutic Exercise (1:1) completed Inessa Gayle, HAT CONDITIONER [address], [place], [address], [facility] 02/28/2024 15:29:44 5 45939 Therapeutic Exercise (1:1) completed Mara Shaffer, PT [address], [place], [address], [facility] 02/25/2024 09:22:48 4 29145 Therapeutic Exercise (1:1) completed Mara Shaffer, PT [address], [place], [address], [facility] 02/21/2024 13:26:19 4 16026 Therapeutic Exercise (1:1) completed Inessa Gayle, HAT CONDITIONER [address], [place], [address], [facility] 02/18/2024 13:54:54 4 03194 Therapeutic Exercise (1:1) completed Mara Shaffer, PT [address], [place], [address], [facility] 02/14/2024 13:35:33 4 83742 Therapeutic Exercise (1:1) completed Inessa Gayle, HAT CONDITIONER [address], [place], [address], [facility] 02/11/2024 14:24:54 4 96823 Therapeutic Exercise (1:1) completed Mara Shaffer, PT [address], [place], [address], [facility] 01/25/2024 17:25:42 4 64750: Low complexity PT Eval completed Mara Shaffer, PT [address], [place], [address], [facility] 01/25/2024 17:26:35 4 G8420 BMI Normal, No Follow-Up Plan Required completed Mara Deena, PT [address], [place], [address], [facility] 01/25/2024 17:25:39 4 G8427 Current Medication Documented completed Mara Bauersabina, PT [address], [place], [address], [facility] 01/25/2024 17:25:36 Imaging Results None recorded. Procedure [...] Updated DateTime 03/29/2024 175.26 cm 20.7 kg/m2 92780.93 g NICKYRONNELL DUMONT [facility] 03/29/2024 13:17:52 Date Recorded Body height Body mass index (BMI) Body weight Provider Name and Address Organization Details Last Updated DateTime 06/14/2024 175.26 cm 20.7 kg/m2 72345.93 g NICKYRONNELL DUMONT [facility] 06/14/2024 14:56:37 Social History None recorded. Functional Status None recorded. Mental Status None recorded. Family History Nothing Reported. Medical History No medical history recorded. Past Encounters Encounter ID Performer Location Encounter Start Date Encounter Closed Date Diagnosis/Indication Diagnosis SNOMED-CT Code Diagnosis ICD10 Code Diagnosis IMO Codes Diagnosis Note [id number] MD Yolanda Wright [address] [place] [address] [address] [place] [address] 12/21/2023 12:12:01 01/10/2024 10:50:54 Closed fracture of right tibial plateau 9875744321 0593651 S82.141A [id number] Mara Shaffer, PT [facility] [address] [place] [address] 01/25/2024 14:58:40 01/25/2024 16:05:09 Closed fracture proximal tibia, bicondylar 998348131 S82.141D [id number] MD Yolanda Wright [address] [place] [address] [address] [place] [address] 01/26/2024 12:52:45 01/26/2024 20:18:31 Closed fracture of tibial plateau 808164914 S82.141D [id number] Inessa Ediee r, HAT CONDITIONER [facility] [address] [place] [address] 02/11/2024 13:25:22 02/11/2024 15:13:30 Closed fracture proximal tibia, bicondylar 384126200 S82.141D [id number] Mara Deena, PT [facility] [address] [place] [address] 02/14/2024 13:26:51 02/14/2024 15:07:27 Closed fracture proximal tibia, bicondylar 287218239 S82.141D [id number] Inessa Vidal r, HAT CONDITIONER [facility] [address] [place] [address] 02/18/2024 13:20:21 02/18/2024 14:24:32 Closed fracture proximal tibia, bicondylar 951405856 S82.141D [id number] Mara Deena, PT [facility] [address] [place] [address] 02/21/2024 13:11:19 02/21/2024 16:12:49 Closed fracture proximal tibia, bicondylar 909525702 S82.141D [id number] Mara Deena, PT [facility] [address] [place] [address] 02/25/2024 09:21:09 02/25/2024 10:14:53 Closed fracture proximal tibia, bicondylar 744522251 S82.141D [id number] Inessa Vidal r, HAT CONDITIONER [facility] [address] [place] [address] 02/29/2024 13:18:42 02/29/2024 15:42:14 Closed fracture proximal tibia, bicondylar 886562717 S82.141D [id number] MD [facility] [address] [place] [address] 03/29/2024 13:02:58 04/18/2024 10:04:52 Closed fracture of tibial plateau 131256941 S82.141D [id number] MD [facility] [address] floor [address] [place] [address] 06/14/2024 14:42:12 06/19/2024 13:48:13 Closed fracture of tibial plateau 634730272 S82.141D 21544205 Pain in left foot 748663 2406 94763 M79.672 182601 Lumbar radiculopathy 128 598871 M54.16 84764 Health Concerns Section Related Observation LastModified by Organization Detai ls LastModified Time None Recorded Concern Status LastModified by Organization Details LastModified Time None Recorded Advance Directives Directive None Recorded Payers Insurance Date Sequence Insurance Name Policy Number Policy Santos Covered Member ID Santos Member ID Guarantor Name 06/11/2024 1 [place] [employer] Nishant Alarcon [id number] Nishant Alarcon 06/19/2024 2 [place] [id number] Nishant Alarcon [id number] Nishant Alarcon Notes Date Note Type Note Provider Name and Address Organization Details Recorded Time 02/21/2024 text/html doing balance ex's at home, and balance feels much better. walking without a cane and feel good. Mara Shaffer, PT [address], [place], [address], [facility] 02/21/2024 14:01:33 02/25/2024 text/html my left hamstring and sciatica has been acting up a little bit. R knee is good. Mara Shaffer, PT [address], [place], [address], [facility] 02/25/2024 10:14:04 02/29/2024 text/html Pt reports he thinks he is getting stronger in his R knee. Inessa Gayle, HAT CONDITIONER [address], [place], [address], [facility] 02/29/2024 15:08:32
== END 2024-11-16 15:38 | disposition home or self-care (01) ==
LOC: HO.HUSH 14:00
PROVIDERS: PCP Physician Assistant; Visit Provider Urology
DX: Z13.9 Encounter for screening, unspecified (principal)

== ENCOUNTER → 2024-11-16 13:59 | Outpatient (BNVA) | payer MEDICARE, SELFPAY | PROVIDERS: PCP Physician Assistant; Visit Provider Urology | DX: N40.1 Benign prostatic hyperplasia with lower urinary tract symptoms (principal); R35.1 Nocturia; Z13.9 Encounter for screening, unspecified; R93.429 Abnormal radiologic findings on diagnostic imaging of unspecified kidney | CPT/HCPCS: 81003; 99202 ==

== ENCOUNTER 2025-01-01 15:32 | Outpatient (AMB) | payer MEDICARE, SELFPAY ==
--- NOTE | 2025-01-01 15:42 | A.OFFPC_ITS ---
Vital Signs 01/01/25 15:46 Height 5 ft 5.9 in Weight 159 lb 8 oz BMI 25.8 BP 110/70 Blood Pressure Location Lt brachial Position Sitting Pulse 89 Pulse Source Pulse Oximeter Temp 97.1 F Temp Source Temporal Artery Scan Pulse Oximetry (%) 99 Oxygen Delivery Method Room Air Intake Visit Reasons: f/u HTN / HLD, resched Intake Note: Patient is here to follow up on HTN, HLD. Lace Winder Required: No Practice Representative: Not Required per policy Accompanied by: Self / Same As Patient Allergies No Known Allergies Allergy (Verified 01/01/25 15:57) Medication List - Last Reconciled 01/01/25 by Tucker Loco PA-C clonazepam 2 mg PO BEDTIME levothyroxine 150 mcg PO DAILY lisinopril 10 mg PO DAILY 90 days mirtazapine 15 mg PO BEDTIME morphine ER 15 mg PO DAILY morphine ER 30 mg PO BID nortriptyline 50 mg PO BEDTIME omeprazole 20 mg PO DAILY oxycodone 5 mg PO TID PRN tamsulosin 0.8 mg (2 x 0.4 mg) PO DAILY Tobacco use date assessed: 01/01/25 Fall risk assessment: No Falls in past year Last assessed Fall Risk: 01/01/25 Dental Screening Dental Screen Date: 10/12/24 HPI f/u HTN / HLD, resched HPI Details Patient is a 69-year-old male here today for follow-up visit. Patient has a past medical history significant for hypothyroidism, hypertension, chronic lumbar spine pain. Concern--> Within the last week, the patient sustained a tick bite while walking his dog. He describes the tick as small, and his successfully removed it with its head intact, but there is residual swelling at the bite site. .. 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 .. Hypothyroidism: Continues on levothyroxine 150 mcg and TSH has been stable. .. Hyperlipidemia: Was previously on statin therapy though has been hold, unfortunately had did not order lipid panel, he would like to recheck his lipid panel to see if he still needs and cholesterol medication as he has been making lifestyle and dietary changes. .. Lumbar disc disease: Followed by media center specialist whom gives patient's epidural injections in his managing his pain with morphine and clonazepam. . .. Hypertension: Blood pressure today in office acceptable. He continues on lisinopril 10 mg with good affect. [facility] Medical History Hypertension Surgical History H/O left wrist surgery History of laminectomy Family History Father Cerebral aneurysm Mother No problems noted. Brother Alcoholism Other Substance use disorder Social History Housing: House Alcohol intake: never Patient Tobacco Use Status: Current everyday Tobacco user Tobacco use type: Cigar and Pipe Cigarettes Per Day: 2 e-Cigarette/Vaping Use: Never Used Second Hand Smoke Exposure: Yes service: No Current occupational status: retired Cognitive needs: No Hearing needs: No Vision needs: Yes Questionnaire Thrive Questionnaire Date Thrive assessed: 07/25/24 I am a: Patient What is your living situation today?: I have a steady place to live Within the past 12 months, did the food you bought not last and you didn't have the money to get more?: Never true Within the past 12 months, did you worry whether your food would run out before you got money to buy more?: Never true Do you have trouble paying for medicines?: No Do you have trouble getting transportation to medical appointments?: No Do you have trouble paying your heating and electricity bill?: No Do you have trouble taking care of your child, family member or friend?: No Do you have trouble with day-to-day activities such as bathing, preparing meals, shopping, managing finances, etc.?: No Are you currently unemployed and looking for a job?: No Are you interested in more education?: No Please select the resources that you would like help with: None Currently or been in a relationship where the following occur: No concerns reported THRIVE Score: 0 AUDIT C Alcohol Use Questionnaire (AUDIT-C) 3. How often do you have six or more drinks on one occasion?: Never Total Score: 0 JOSHUA-7 AMB Questionnaire JOSHUA-7 Date JOSHUA - 7 assessed: 10/12/24 Source: Developed by Ilana TannerW. Amilcar, Adrian Kim and colleagues, with an educational vinod from [employer]. Review of Systems Const Denies headache(s) Eyes Denies loss of vision ENT Denies vertigo, Denies dizziness, Denies headache(s) and Denies sore throat Card Denies chest pain, Denies leg edema and Denies lightheadedness Resp Denies cough, Denies hemoptysis and Denies wheezing GI Denies abdominal pain, Denies melena, Denies constipation, Denies diarrhea and Denies vomiting Denies dysuria, Denies urinary frequency and Denies urinary urgency Musc Denies arthralgias, Denies joint swelling, Denies numbness and Denies tingling Neuro Denies Abnormal speech present, Denies behavioral changes, Denies vertigo, Denies dizziness, Denies headache(s), Denies loss of vision, Denies memory loss, Denies numbness and Denies tingling Psych Denies anxiety, Denies behavioral changes, Denies depression, Denies memory loss and Denies panic attacks Abdon/Lymph Denies easy bleeding and Denies easy bruising Aller/Immun Denies wheezing Physical exam (Primary Care) Vital Signs: Last Vital Signs Temp 97.1 F 01/01/25 15:46 Pulse 89 01/01/25 15:46 BP 110/70 01/01/25 15:46 Pulse Ox 99 01/01/25 15:46 Oxygen Delivery Method Room Air 01/01/25 15:46 BMI result Body Mass Index 25.8 Tobacco/Smoking Status: Tobacco use Status Tobacco use date assessed 01/01/25 01/01/25 15:44 Patient Tobacco Use Status Current everyday Tobacco 01/01/25 15:44 Tobacco use type Pipe,Cigar 01/01/25 15:44 e-Cigarette/Vaping Use Never Used 01/01/25 15:44 Thrive Assessment: Date of Thrive Assessment Date Thrive assessed 07/25/24 01/01/25 15:44 Currently or been in a relationship where the following occur: No concerns reported Const General: healthy appearing, no acute distress, alert and awake Nutritional Appearance: well nourished Orientation/consciousness: oriented to person, oriented to place and oriented to time HENMT Ears: TM's normal bilaterally General nose exam: Normal nasal mucous membranes and turbinates present Eyes Conjunctivae: conjunctivae normal Sclerae: sclerae normal Pupils: Equal, round and reactive pupils present Neck Neck: Yes no lymphadenopathy and Yes no JVD Thyroid: Thyroid normal Carotids: no bruits Resp Effort & Inspection: normal respiratory effort and not tachypneic Auscultation: no crackles, no rales, no rhonchi and no wheezes Cardio Rate: regular rate Rhythm: regular rhythm Heart sounds: no murmurs and normal S1 and S2 GI Palpation (GI): Soft to palpation, nontender, no hepatomegaly and no splenomegaly Auscultation: normal bowel sounds Skin General skin exam: no rashes or lesions noted and dry skin Neuro General: oriented to person, oriented to place and oriented to time Cranial nerves: Yes Equal, round and reactive pupils present Speech: No Abnormal speech present Gait exam (Neuro): Normal gait present Motor exam (neuro): no tremor noted Extrem Right upper extremity: full ROM Left upper extremity: full ROM Right lower extremity: full ROM; no edema Left lower extremity: full ROM; no edema Psych Mental Status: mental status grossly normal Speech and movement: Normal speech and movement present Affect: normal affect Attitude: cooperative Thought process: Normal thought process present Coding Level of Care Code Est Pt Level 4 (13964) Diagnoses Tick bite of abdomen, initial encounter S30.861A; W57.XXXA Encounter type: initial encounter Hypothyroidism, unspecified type E03.9 Hypothyroidism type: unspecified Primary hypertension I10 Hypertension type: primary hypertension Lumbar disc disease with radiculopathy M51.16 Mixed hyperlipidemia E78.2 Hyperlipidemia type: mixed hyperlipidemia BPH associated with nocturia N40.1; R35.1 Assessment & Plan Assessment & Plan (1) Tick bite of abdomen: Code(s): S30.861A - Insect bite (nonvenomous) of abdominal wall, initial encounter; W57.XXXA - Bitten or stung by nonvenomous insect and other nonvenomous arthropods, initial encounter Category: Medical Qualifiers: Encounter type: initial encounter Qualified Code(s): S30.861A - Insect bite (nonvenomous) of abdominal wall, initial encounter; W57.XXXA - Bitten or stung by nonvenomous insect and other nonvenomous arthropods, initial encounter Plan: Regarding the recent tick bite, a prescription for doxycycline will be sent to his pharmacy for Lyme disease prophylaxis, given he is in an endemic area. The patient is not allergic to any medications. A lab order for a Lyme disease test will also be provided, with the recommendation to wait 3-4 weeks before testing unless symptoms such as rash, fever, or joint pains develop. (2) Hypothyroidism: Code(s): E03.9 - Hypothyroidism, unspecified Category: Medical Qualifiers: Hypothyroidism type: unspecified Qualified Code(s): E03.9 - Hypothyroidism, unspecified Plan: Patient continues on levothyroxine 150 mcg with good effect on his TSH. Most recent TSH stable. Will continue to follow to normal TSH. (3) Hypertension: Code(s): I10 - Essential (primary) hypertension Category: Medical Qualifiers: Hypertension type: primary hypertension Qualified Code(s): I10 - Essential (primary) hypertension Plan: Patient's blood pressure acceptable today in office. We have discontinued his hydrochlorothiazide, continues on lisinopril 10 with good effect on his blood pressure. Will continue his current dose of lisinopril at this time.. Advised to monitor blood pressure at home. Goal blood pressures to be below 140/90 (4) Lumbar disc disease with radiculopathy: Code(s): M51.16 - Intervertebral disc disorders with radiculopathy, lumbar region Category: Medical Plan: Patient followed by media center specialist to which he gets injections and they are managing his pain with morphine and clonazepam (5) HLD (hyperlipidemia): Code(s): E78.5 - Hyperlipidemia, unspecified Category: Medical Qualifiers: Hyperlipidemia type: mixed hyperlipidemia Qualified Code(s): E78.2 - Mixed hyperlipidemia Plan: We have discontinued his statin therapy as he felt he does not need the medication anymore. Will recheck his lipid panel and if total cholesterol below 200 and LDL below 130 will continue with lifestyle and dietary modifications as treatment (6) BPH associated with nocturia: Code(s): N40.1 - Benign prostatic hyperplasia with lower urinary tract symptoms; R35.1 - Nocturia Category: Medical Plan: Patient continues on tamsulosin on a nightly basis which he does report is effective on reducing his nocturia. PSAs has been stable. Orders: Orders Lyme IgG/IgM w/reflex to WB Today S30.861A - Insect bite (nonvenomous) of abdominal wall, initial encounter, W57.XXXA - Bitten or stung by nonvenomous insect and other nonvenomous arthropods, initial encounter Lipid Panel Today E78.2 - Mixed hyperlipidemia Medications: New doxycycline monohydrate 100 mg PO BID 20 caps 0RF 10 days S30.861A - Insect bite (nonvenomous) of abdominal wall, initial encounter, W57.XXXA - Bitten or stung by nonvenomous insect and other nonvenomous arthropods, initial encounter
[2025-01-01 15:46] VITALS: BP 110/70; PULSE 89; TEMP 36.2; O2SAT 99; BMI 25.8
--- OUTSIDE RECORDS SUMMARY | 2025-01-01 17:38 | XMS_ITS | Data Portability ---
Author Organization [place] [facility], [facility] Address [address] [address] Care Team Providers Care Curriculum Development Specialist Name Role Phone FAUSTINO MC Primary Care Provider [phone] Assessment Encounter Date Assessment Date Assessment LastModified [...] None recorded. Lab vitamin B12, serum 025 [facility], [address] [place], [address], 5 14:42:59 mma (methylma lonic acid), serum [address] [facility], [address] [place], [address], 5 14:42:59 folate, serum [address] [facility], [address] [place], [address], 5 14:42:59 TSH + free T4, serum [address] [facility], [address] [place], [address], 5 14:42:59 RPR (rapid plasma reagin), serum [address] [facility], [address] [place], [address], 5 14:42:59 Referral None recorded. Procedures None [...] Address Organization Details Recorded Time Alzheimer's disease 41936893 Active 2024 BRANDY Rico [employer] [facility] 13:27:03 Pain 30526137 Active 2024 BRANDY Rico [employer] [facility] 13:47:02 Hypercholester olemia 87973580 Active 2024 BRANDY Rico [employer] [facility] 13:47:08 Depressive disorder 72832169 Active 2024 Cipriano faulkner [facility] 13:47:14 Memory impairment 505620438 Active 2024 Cipriano faulkner [facility] [employer] [facility] 13:47:23 Gastroesophage al reflux disease 195853086 Active 2024 Cipriano faulkner [facility] 13:47:32 Arthritis 4472000 Active 2024 Cipriano Sebastian faulkner [facility] 13:47:55 Persistent insomnia 524490206 Active 2024 Cipriano Sebastian faulkner [facility] 13:53:26 Disorder of thyroid gland 79553766 Active 2024 Cipriano Sebastian faulkner [facility] [employer] [facility] 5 13:53:57 Hypertensive disorder 68708289 Active 2024 Cipriano Sebastian faulkner [facility] 13:54:36 Problem Notes None recorded. Medical Equipment [...] 5 86 /min 177.8 cm 22.1 kg/m2 48878.2 2 g 100 % 100 % 120/70 mm[Hg] [facility] 5 13:24:44 Social History None recorded. Functional Status None recorded. Mental Status None recorded. Family History Nothing Reported. Medical History No medical history recorded. Past Encounters Encounter ID Performer Location Encounter Start Date Encounter Closed Date Diagnosis/Indication Diagnosis SNOMED-CT Code Diagnosis ICD10 Code Diagnosis IMO Codes Diagnosis Note 1991 MD [facility] [address] [facility] [address] [place] [address] 08/30/2024 13:10:45 2024 10:24:00 Chronic pain syndrome [id number] G89.4 22447 Assessment : Patient has a long-stand ing [...] pain- [facility] - Discuss buprenorph ine as a potential alternativ e for pain management with pain doctor- Consider reducing nortriptyl ine and clonazepam to minimize fall risk- Encourage continuati on of non-pharma cological pain management strategies (exercise, meditation ) Abnormal gait 25928594 R 26.81 247142 with high fall risk:Asses sment: Patient has [...] in senior warm water exercise class at [facility]- Consider referral to a personal care service provider specializi ng in movement and strength training for older adults Cognitive function finding [id number] R41.89 [id number] Assessment : Patient reports short-term memory issues [...] and/or Antonio Chi may help Depressive disorder 8956 8431 F32.A 77356 Assessment : Patient presents with symptoms suggestive [...] cological interventi ons for mood management Hypothyroidism 32258188 E03.9 [id number] Hypothyroi dismAssess ment: Patient has a history of hypothyroi dism, currently managed with levothyrox ine.Plan:- Continue levothyrox ine 150 mcg daily Insomnia 553273343 G47.0 0 [id number] Assessment : Patient is taking multiple medication [...] interventi ons for insomnia Musculoske letal fibromatosis 835445145 M72.0 889851 Hand Dysfunctio nAsfrancesca t: Patient reports hand [...] Member ID Santos Member ID Guarantor Name 12/30/2024 1 [place] [employer] Nishant Alarcon [id number] Nishant Alarcon 08/30/2024 2 [place]: [place] [id number] Nishant Alarcon [id number] Nishant Alarcon Notes Date Note Type [...] He gets awful cramped, since the second fall.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 Family/caregiver history: Darlene, . Chief ComplaintChronic pain exacerbated by recent falls, difficulty walking due to sciatica, cognitive changes and memory issues following traumatic brain injury, depression [facility], failed [...] urination. The patient denies taking Tylenol, Dilaudid, ceai-zma-eyrddks supplements, Tylenol PM, or Advil PM. The patient's expresses concern about his risk of falling again and his dependence on narcotics. She notes that depression affects his pain and that he needs medical attention and extra special care. 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 Went to [facility] but they didnt have a [...] depression. Recent ED visits/hospitalizations: [facility] (incorrect date provided by Pt.). injured [...] > 5 illnesses(HTN, DM, CA, chronic respiratorydisease, PA, CVA, arthritis (or RA), CKD, or liver disease): NoWeight loss > 5% in the past 6 months: noScore: 1-2 (Robust: 0, Pre-frail: 1-2, Frail: >=3) Social History:Born/raised: [place], [place]. Had a brotherChildhood: greatEducational level: BA [place]i, played in bands, brock on the sideLiving situation: Single Family in [place], lives with and bird dogs - they now have Bessie, [place]i Avila SpanielSexual orientation: StraightPartnership status: x 1995Occupation: Retired; In his 50's, he got a disability 2/2 constant sciatica. previously worked at [employer] CorporateChildren: 0ETOH: 1-3x per week - hard [...] Father: History of gambling Emma [facility] MD [address] [place] [address],[facility] [address], [place], [address], [facility] 2024 10:23:04
--- OUTSIDE RECORDS SUMMARY | 2025-01-01 17:38 | XMS_ITS | Clinical Summary ---
Author Organization [facility] Address [address] [facility] [place] [address] Care Team Providers Care Potato Chip Maker Name Role Phone Cm Saunders MD Primary Care Provider [phone] Allergies No known active allergies Medications HYDROmorphone [...] 07/11/2021 1:00 PM EDT Plan of Treatment Not on file Insurance MEDICARE PART A AND B [facility] MEDEX Care Teams Potato Chip Maker Relationship Specialty Start Date End Date Cm Saunders MD [address] [place] [address] PCP - General 07/11/21
--- OUTSIDE RECORDS SUMMARY | 2025-01-01 17:38 | XMS_ITS | Data Portability ---
Author Organization [facility], [facility] Address [address] [place] [address] Care Team Providers Care Consumer Marketing Manager Name Role Phone JEIMY HACKETT Referring Provider [phone] JEIMY HACKETT Primary Care Provider [phone] Assessment Encounter Date Assessment Date Assessment LastModified [...] - Imaging ordered, obtained, and reviewed at [facility]. - AP and lateral X-rays of [...] This note was accomplished with use of [employer] software, which is prone to medical and [...] Imaging: Imaging ordered, obtained and reviewed at [facility]. - Right knee X-ray (AP and [...] This note was accomplished with use of [employer] software, which is prone to medical and [...] [facility], [address], [place], [address], 5 13:48:13 XR, knee, 1 or 2 view - 311 2V RIGHT KNEE 2024 025 [facility], [address], [place], [address], 5 13:48:14 XR, foot, 3 or more view - 311 3V WB LEFT FOOT 2024 025 [facility], [address], [place], [address], 5 13:48:14 XR, knee, 1 or 2 view - 310 2V RIGHT KNEE 2024 025 [facility], [address], [place], [address], 5 10:04:53 Medication Orders None recorded. Patient [...] a4ajBk vP9nXo QUaueC m3YtLR FvZlgJ JJ8mAn HZtai3 8x3818 AC0Kqa XqAVaC uKiQtr MwF INTERFACE [facility] [address], [place], [address], 01/26/2024 13:21:16 01/26/20 24 01/26/2024 XR, knee, 1 or 2 view [email or web address] ?Encry pted=s hAaTro YD8dLq bEUv6g %2BXZw aYqtaq 0bqfl% 2Fg9IQ a4ajBk vP9nXo QUaueC m3YtLR FvZlgJ JJ8mAn HZtai3 5e6583 AC0Kqa XqAVaC uKiQtr MwF INTERFACE [facility] [address], [address], 01/26/2024 13:21:18 03/29/19 25 03/29/2024 XR, knee, 1 or 2 view [email or web address]:/ [email or web address] ?Encry pted=s hAaTro YD8dLq bEUv6g %2BXZw aYqtaq 0bqfl% 2Fg9IQ a4ajBk vP9nXo QUaueC m3YtLR FvZlgJ JJ8mAn HZtai3 8z6350 AC0Kqb HmCUqG nKiQtr MwF INTERFACE [facility] [address], [address], 03/29/2024 13:28:05 03/29/19 25 03/29/2024 XR, knee, 1 or 2 view [email or web address] ?Encry pted=s hAaTro YD8dLq bEUv6g %2BXZw aYqtaq 0bqfl% 2Fg9IQ a4ajBk vP9nXo QUaueC m3YtLR FvZlgJ JJ8mAn HZtai3 9q3151 AC0Kqb HmCUqG nKiQtr MwF INTERFACE [facility] [address], [address], 03/29/2024 13:28:08 06/15/19 25 06/14/2024 XR, knee, 1 or 2 view [email or web address]:/ [email or web address] ?Encry pted=s hAaTro YD8dLq bEUv6g %2BXZw aYqtaq 0bqfl% 2Fg9IQ a4ajBk vP9nXo QUaueC m3YtLR FvZlgJ JJ8Miami HZtai3 4a8470 AC0Kla n2MUqG lKiQtr MwF INTERFACE [facility] [address] [address], [place], [address], 06/14/2024 15:01:51 06/15/19 25 06/14/2024 XR, knee, 1 or 2 view [email or web address] ?Encry pted=s hAaTro YD8dLq bEUv6g %2BXZw aYqtaq 0bqfl% 2Fg9IQ a4ajBk vP9nXo QUaueC m3YtLR FvZl JJ8Miami HZtai3 8w3148 AC0Kla n2MUqG lKiQtr MwF INTERFACE [facility] [address] [address], [place], [address], 06/14/2024 15:01:53 06/15/19 25 06/14/2024 XR, lumbo sacra l spine , 4 or more view [email or web address] ?Encry pted=s hAaTro YD8dLq bEUv6g %2BXZw aYqtaq 0bqfl% 2Fg9IQ a4ajBk vP9nXo QUaueC m3YtLR FvZl JJ8Miami HZtai3 1y0489 AC0Kla n2MWau hKiQtr MwF INTERFACE [facility] [address] [facility] [address], [place], [address], 06/14/2024 15:46:35 06/15/19 25 06/14/2024 XR, lumbo sacra l spine , 4 or more view [email or web address] ?Encry pted=s hAaTro YD8dLq bEUv6g %2BXZw aYqtaq 0bqfl% 2Fg9IQ a4ajBk vP9nXo QUaueC m3YtLR FvZlJ JJ8mAn HZtai3 7z2784 AC0Kla n2MWau hKiQtr MwF INTERFACE [facility] [address] [address], [place], [address], 06/14/2024 15:46:37 06/15/19 25 06/14/2024 XR, foot, 3 or more view [email or web address] ?Encry pted=s hAaTro YD8dLq bEUv6g %2BXZw aYqtaq 0bqfl% 2Fg9IQ a4ajBk vP9nXo QUaueC m3YtLR FvZlgJ JJ8mAn HZtai3 8p9580 AC0Kla n2MWau nKiQtr MwF INTERFACE [facility] [address] [facility] [address], [place], [address], 06/14/2024 15:49:30 06/15/19 25 06/14/2024 XR, foot, 3 or more view [email or web address] ?Encry pted=s hAaTro YD8dLq bEUv6g %2BXZw aYqtaq 0bqfl% 2Fg9IQ a4ajBk vP9nXo QUaueC m3YtLR FvZlgJ JJ8mAn HZtai3 2f3041 AC0Kla n2MWau nKiQtr MwF INTERFACE [facility] [address] [address], [place], [address], 06/14/2024 15:49:31 Result Notes Documentation Provider Name and Address Organization Details Recorded Time Xr, Knee, 1 Or 2 View : [email or web address] Encrypted=lzFbGseGE2mGpaP Uv6g%3YASzbSeedr5awbr%2Fg 4NPi2umUedQ3fHzUMgmwOr2Mi OALbGubNSZ2jLeCJkbh77r903 8WK7EqiJoCAkIqHzXidGaB Not Available [facility] 03/29/2024 13:28: 06 Xr, Knee, 1 Or 2 View : [email or web address] Encrypted=syXeCicCK4pQeiV Uv6g%2MNWhvGdtrx5quha%2Fg 3BWa4ocDhsO8gAaZIcycCx6Ie QZOdMroHFP2oUyUCubs52v841 0AC6CsuQyUGhNeGzQjoOzP Not Available [facility] 03/29/2024 13:28: 08 Xr, Knee, 1 Or 2 View : [email or web address] Encrypted=kcAjSwuVI0oLilJ Uv6g%3AYZlnDcmhg5dxpx%2Fg 5MRr1raIckR6mTdHYzfwMw0Ct XVPfFviVZN9tOqNKnjo34d083 0SP0Pzft2ARbEzGaTcuPgQ Not Available [facility] 06/14/2024 15:01: 52 Xr, Knee, 1 Or 2 View : [email or web address] Encrypted=ttOvLxrQP1pLptE Uv6g%1EBDsfSbjtk4ssgh%2Fg 4RXv2mjSvsJ0yOiYRrqoKw9Yd DKHsCmwMBO5lUyQBoqt76w211 3IM4Prqj7AYdIdQbMosTuB Not Available [facility] 06/14/2024 15:01: 53 Xr, Lumbosacral Spine, 4 Or More View : [email or web address] Encrypted=cnSwBqqTG2qCdkG Uv6g%0PAEmgUtcmh5gevo%2Fg 4EIm3zoRogL2mDlDUikgLe4Cb OUEgKrhTTS1bCvZTmgt37y529 8CJ2Crae1OYftlCxObiXhM Not Available [facility] 06/14/2024 15:46: 36 Xr, Lumbosacral Spine, 4 Or More View : [email or web address] Encrypted=cfPxEymQM6aYijN Uv6g%5YIJriAyfza5inls%2Fg 0SIl7eeXmqC5fWlQGnppCn1Rh OWKzInzLIU0mNuMMcpm12t443 8OE5Akku9JZezmUgStfQkQ Not Available [facility] 06/14/2024 15:46: 37 Xr, Foot, 3 Or More View : [email or web address] Encrypted=kfJgOuxAY8zUlbY Uv6g%0IGLdvXlaxp1teem%2Fg 0UKo2jyRlnW2zRkJGnhyOc2Qo VFPrGezEOU7mYfQKfav43x570 0NA7Ilzo4RYqgtBrPioDkI Not Available [facility] 06/14/2024 15:49: 30 Xr, Foot, 3 Or More View : [email or web address] Encrypted=vaLiMmaJN0mMwyZ Uv6g%1DNHtnRmgwo0dgbr%2Fg 5ZNn6fuFdzK9fZoONcaaSo6Hu QDPkApyQSJ0zRsMFhma26b161 0MR6Vdkx6FNlddBsPfiFxH Not Available [facility] 06/14/2024 15:49: 32 Problems Name Problem SNOMED Code Status Onset Date Resolution Date Notes Provider Name and Address Organization Details Recorded Time Closed fracture of tibial plateau 969939623 Active 2024 BRANDY Perez [facility] 13:22:14 Pain in left foot 0517796146324 07 Active 2024 BRANDY Perez [facility] 5 15:37:25 Lumbar radiculopat hy 668144695 Active 2024 BRANDY Perez [facility] 15:37:51 Problem Notes None recorded. Procedures Surgical History Date Name Laterality Status Provider Name and Address Organization Details Recorded Time 5 24595 Therapeutic Exercise (1:1) completed Inessa Gayle, [employer] [address], [place], [address], [facility] 02/28/2024 15:29:44 5 91979 Therapeutic Exercise (1:1) completed Mara Shaffer, PT [address], [place], [address], [facility] 02/25/2024 09:22:48 4 97143 Therapeutic Exercise (1:1) completed Mara Shaffer, PT [address], [place], [address], [facility] 02/21/2024 13:26:19 4 27113 Therapeutic Exercise (1:1) completed Inessa Gayle, [employer] [address], [place], [address], [facility] 02/18/2024 13:54:54 4 45611 Therapeutic Exercise (1:1) completed Mara Shaffer, PT [address], [place], [address], [facility] 02/14/2024 13:35:33 4 51848 Therapeutic Exercise (1:1) completed Inessa Gayle, [employer] [address], [place], [address], [facility] 02/11/2024 14:24:54 4 17271 Therapeutic Exercise (1:1) completed Mara Shaffer, PT [address], [place], [address], [facility] 01/25/2024 17:25:42 4 60872: Low complexity PT Eval completed Mara Shaffer, PT [address], [place], [address], [facility] 01/25/2024 17:26:35 4 G8420 BMI Normal, No Follow-Up Plan Required completed Mara Deena, PT [address], [place], [address], [facility] 01/25/2024 17:25:39 4 G8427 Current Medication Documented completed Mara Bauersabina, PT [address], [place], [address], [facility] 01/25/2024 17:25:36 Imaging Results None recorded. [...] Updated DateTime 03/29/2024 175.26 cm 20.7 kg/m2 67395.93 g NICKYRONNELL DUMONT [facility] 03/29/2024 13:17:52 Date Recorded Body height Body mass index (BMI) Body weight Provider Name and Address Organization Details Last Updated DateTime 06/14/2024 175.26 cm 20.7 kg/m2 90768.93 g NICKYRONNELL DUMONT [facility] 06/14/2024 14:56:37 Social History None recorded. Functional Status None recorded. Mental Status None recorded. Family History Nothing Reported. Medical History No medical history recorded. Past Encounters Encounter ID Performer Location Encounter Start Date Encounter Closed Date Diagnosis/Indication Diagnosis SNOMED-CT Code Diagnosis ICD10 Code Diagnosis IMO Codes Diagnosis Note [id number] MD Yolanda Wright [address] [place] [address] [address] [place] [address] 12/21/2023 12:12:01 01/10/2024 10:50:54 Closed fracture of right tibial plateau 4281172921 4693133 S82.141A [id number] Mara Shaffer, PT [facility] [address] [place] [address] 01/25/2024 14:58:40 01/25/2024 16:05:09 Closed fracture proximal tibia, bicondylar 109850284 S82.141D [id number] MD Yolanda Wright [address] [place] [address] [address] [place] [address] 01/26/2024 12:52:45 01/26/2024 20:18:31 Closed fracture of tibial plateau 941798109 S82.141D [id number] [id number] Inessa Ediee r, [employer] [facility] [address] [place] [address] 02/11/2024 13:25:22 02/11/2024 15:13:30 Closed fracture proximal tibia, bicondylar 475935006 S82.141D [id number] Mara Deena, PT [facility] [address] [place] [address] 02/14/2024 13:26:51 02/14/2024 15:07:27 Closed fracture proximal tibia, bicondylar 776402375 S82.141D [id number] Inessa Vidal r, [employer] [facility] [address] [place] [address] 02/18/2024 13:20:21 02/18/2024 14:24:32 Closed fracture proximal tibia, bicondylar 828152667 S82.141D [id number] Mara Deena, PT [facility] [address] [place] [address] 02/21/2024 13:11:19 02/21/2024 16:12:49 Closed fracture proximal tibia, bicondylar 535459316 S82.141D 776241 [id number] Mara Deena, PT [facility] [address] [place] [address] 02/25/2024 09:21:09 02/25/2024 10:14:53 Closed fracture proximal tibia, bicondylar 326979725 S82.141D [id number] Inessa Vidal r, [employer] [facility] [address] [place] [address] 02/29/2024 13:18:42 02/29/2024 15:42:14 Closed fracture proximal tibia, bicondylar 028854373 S82.141D [id number] MD [facility] [address] [place] [address] 03/29/2024 13:02:58 04/18/2024 10:04:52 Closed fracture of tibial plateau 940443150 S82.141D [id number] MD [facility] [address] floor [address] [place] [address] 06/14/2024 14:42:12 06/19/2024 13:48:13 Closed fracture of tibial plateau 159332092 S82.141D 71712653 Pain in left foot 218826 9306 37684 M79.672 872026 Lumbar radiculopathy 128 285201 M54.16 89055 Health Concerns Section Related Observation LastModified by Organization Detai ls LastModified Time None Recorded Concern Status LastModified by Organization Details LastModified Time None Recorded Advance Directives Directive None Recorded Payers Insurance Date Sequence Insurance Name Policy Number Policy Santos Covered Member ID Santos Member ID Guarantor Name 06/11/2024 1 [place] [employer] Nishant Alarcon [id number] Nishant Alarcon 06/19/2024 2 [place] [id number] Nishant Alarcon [id number] Nishant Alarcon Notes Date Note Type Note Provider Name and Address Organization Details Recorded Time 02/21/2024 text/html doing balance ex's at home, and balance feels much better. walking without a cane and feel good. Mara Shaffer, PT [address], [place], [address], [facility] 02/21/2024 14:01:33 02/25/2024 text/html my left hamstring and sciatica has been acting up a little bit. R knee is good. Mara Shaffer, PT [address], [place], [address], [facility] 02/25/2024 10:14:04 02/29/2024 text/html Pt reports he thinks he is getting stronger in his R knee. Inessa Gayle, [employer] [address], [place], [address], [facility] 02/29/2024 15:08:32
== END 2025-01-01 16:15 | disposition home or self-care (01) ==
LOC: HO.HMCH 15:33
PROVIDERS: PCP Physician Assistant; Visit Provider Physician Assistant
DX: S30.861A Insect bite (nonvenomous) of abdominal wall, initial encounter (principal); W57.XXXA Bitten or stung by nonvenomous insect and other nonvenomous arthropods, initial encounter; E03.9 Hypothyroidism, unspecified; I10 Essential (primary) hypertension; M51.16 Intervertebral disc disorders with radiculopathy, lumbar region; E78.2 Mixed hyperlipidemia; N40.1 Benign prostatic hyperplasia with lower urinary tract symptoms; R35.1 Nocturia

== ENCOUNTER → 2025-01-01 15:32 | Outpatient (BNVA) | payer MEDICARE, SELFPAY | PROVIDERS: PCP Physician Assistant; Visit Provider Physician Assistant | DX: S30.861D Insect bite (nonvenomous) of abdominal wall, subsequent encounter (principal); W57.XXXD Bitten or stung by nonvenomous insect and other nonvenomous arthropods, subsequent encounter; E03.9 Hypothyroidism, unspecified; E78.2 Mixed hyperlipidemia; I10 Essential (primary) hypertension; M51.16 Intervertebral disc disorders with radiculopathy, lumbar region; N40.1 Benign prostatic hyperplasia with lower urinary tract symptoms; R35.1 Nocturia | CPT/HCPCS: 99212 ==